=== PATIENT | female | born 1940 | race Caucasian/White ===

== ENCOUNTER 2016-12-22 17:22 | Emergency (ER) | payer MEDICARE, BC ==
[2016-12-22] MEDS ORDERED: traMADol TAB* 50 MG PO ONE (17:37)
--- NOTE | 2016-12-22 18:30 | RAD ---
INDICATION: Intracranial injury COMPARISON: CT brain January 29, 2015 TECHNIQUE: Noncontrast axial source images were acquired from the skull base to the vertex. FINDINGS: Ventricles/sulci: There is cortical atrophy with compensatory dilatation of the CSF spaces. Brain parenchyma: There is periventricular and subcortical white matter change compatible with chronic ischemia. Intracranial hemorrhage:None. Extra-axial spaces: There are no abnormal extra axial fluid collections or evidence of extra-axial mass. Calvarium: There is no calvarial fracture or other calvarial abnormality. Scalp: There is no evidence of scalp or extracalvarial soft tissue abnormality. Paranasal sinuses/mastoid: The paranasal sinuses and mastoid air cells are clear. Other: None. IMPRESSION: CORTICAL ATROPHY WITH CHRONIC MICROVASCULAR ISCHEMIC CHANGES. NO ACUTE FINDINGS.
--- NOTE | 2016-12-22 18:35 | RAD ---
INDICATION: Left supraorbital injury. COMPARISON: None TECHNIQUE: Axial source images were acquired from the vertex of the mandible through the orbits. Coronal and sagittal reconstructed images were acquired. FINDINGS: Bones: There is a mildly displaced, left-sided infraorbital fracture. There is herniation of fat but there is no rectus muscle involvement. No other facial bone fractures are seen. Orbits: There is minor left-sided proptosis with prominent left supra orbital swelling. There is a small amount of stranding of the retrobulbar fat likely related to the acute injury. The optic nerves are symmetric. Extraocular muscles appear intact. There is no evidence of a radiopaque foreign body. Paranasal sinuses: There is soft tissue density with an air-fluid level in left maxillary antra consistent with blood. The remaining paranasal sinuses are clear. Brain: There are no acute abnormalities of the visualized brain parenchyma. Soft tissues: Normal Other: None The visualized soft tissue elements about the neck appear normal. IMPRESSION: Mildly displaced fracture of the inferior left orbit with herniation of fat. There is left periorbital soft tissue swelling. There is presumed blood within the left maxillary antrum with an air-fluid level. No foreign body is identified.
[2016-12-22] MEDS ORDERED: ceFAZolin 1 GM VIAL(*) 1 GM in NS 0.9% 50 ML* 50 ML IVPB ONE (20:09)
[2016-12-22] MEDS ORDERED: ceFAZolin 1 GM ADVAN(*) 1 GM ADDV.VIAL IVPB ONE (20:25)
--- NOTE | 2016-12-22 21:36 | ED ---
Shaina Joya Thomas, scribed for Hung Deras MD on 12/22/16 at 1956 . Head Injury - HPI Summary HPI Summary: The pt is a 76 y/o F presenting to the ED c/o facial pain and abrasions, ecchymosis, and swelling to her left orbit s/p a fall in which she landed on broken glass. She reports that she was stepping out of a screen door with a glass in her hand when she fell forward and dropped the glass that she was holding, breaking it into many shards, then landing on those shards. She rates her pain 3/10. She denies any pain to her eye, only it needs to rest. When the glass broke, it broke into big large chunks. She denies LOC, neck pain, back pain, and hip pain during the fall. She does complain of right hand pain that every now and then I feel a prick. She is on Coumadin. She confirms a tetanus vaccination in the last five years. PMHx: A-Fib, HLD, HTN, seizure. PSHx : cardiac ablation, mitral valve replacement, pacer. SHx: no smoking, weekly alcohol use, no illicit drug use. Her PCP is Dr. Gutierrez. She is accompanied by her son. - History Of Current Complaint Chief Complaint: EDHeadInjury Stated Complaint: HEAD LAC Time Seen by Provider: 12/22/16 17:36 Hx Obtained From: Patient, Family/Rejector - son is present Mechanism Of Injury: Fall From A Standing Position - onto shards of glass Onset/Duration: Started Hours Ago, Still Present Pain Intensity: 3 Pain Scale Used: 0-10 Numeric Associated Signs And Symptoms: Swelling, Bruising, Other: - POS: facial pain, laceration above left eyebrow; NEG: LOC, neck pain, back pain, hip pain Anticoagulant Therapy: Coumadin - Allergies/Home Medications Allergies/Adverse Reactions: Allergies Allergy/AdvReac Type Severity Reaction Status Date / Time Hydrocodone [From Vicodin] Allergy Intermediate Paranoia Verified 05/11/14 11:01 Carbamazepine [From Tegretol] Allergy Unknown Verified 05/11/14 11:01 Reaction Details Sulfa Antibiotics Allergy Unknown Verified 05/11/14 11:01 Reaction Details PMH/Surg Hx/FS Hx/Imm Hx Previously Healthy: No Endocrine/Hematology History: Denies: Hx Diabetes, Hx Thyroid Disease, Hx Anemia Cardiovascular History: Reports: Hx Atrial Fibrillation, Hx Coronary Artery Disease, Hx Hypercholesterolemia, Hx Hypertension, Hx Pacemaker/ICD, Hx Valvular Heart Disease Respiratory History: Reports: Hx Asthma Denies: Hx Chronic Obstructive Pulmonary Disease (COPD) GI History: Denies: Hx Jaundice, Hx Ulcer Musculoskeletal History: Reports: Hx Arthritis, Hx Back Problems Denies: Hx Osteoporosis Sensory History: Reports: Hx Contacts or Glasses Denies: Hx Hearing Aid Opthamlomology History: Reports: Hx Contacts or Glasses Neurological History: Reports: Hx Transient Ischemic Attacks (TIA) - 2011 Denies: Hx Headaches Psychiatric History: Reports: Hx Anxiety, Hx Depression Denies: Hx Panic Disorder - Surgical History Surgery Procedure, Year, and Place: MITRAL VALVE REPLACEMENT 2006, TONSILS. cardiac ablation - Immunization History Date of Tetanus Vaccine: Unk Date of Influenza Vaccine: 2015 Infectious Disease History: No Infectious Disease History: Denies: Hx Hepatitis, Hx Human Immunodeficiency Virus (HIV), Traveled Outside the [place] in Last 30 Days - Family History Known Family History: Negative: Cardiac Disease - Social History Alcohol Use: Weekly Alcohol Amount: Two glasses per week Substance Use Type: Reports: None Smoking Status (MU): Never Smoked Tobacco Review of Systems Negative: Fever, Chills Negative: Erythema - eyes Negative: Sore Throat Negative: Chest Pain Negative: Shortness Of Breath, Cough Negative: Abdominal Pain, Vomiting, Nausea Negative: dysuria, hematuria Positive: Other - POS: facial pain; NEG: neck pain, back pain, hip pain. Negative: Myalgia, Edema - legs Negative: Rash Neurological: Other - NEG: dizziness, LOC All Other Systems Reviewed And Are Negative: Yes Physical Exam - Summary Physical Exam Summary: Constitutional: Well-developed, Well-nourished, Alert, Cooperative Skin: Warm, Dry. There is a 4mm laceration above the left eyebrow. There is left infraorbital ecchymosis as well as upper and lower eyelid ecchymosis. HENT: There is tenderness to palpation of the left maxilla and left infraorbital area. Normocephalic; No Racoons eyes; No battles sign; No abrasion ; No contusion; No hemotympanum; No maxilla instability; Dentition are smooth; No dental trauma; No trismus Eyes: There is chemosis of the left conjunctiva. EOM are intact but hesitant. PERRL. Neck: Trachea is midline. No stridor; No JVD; No step off; No posterior cervical spine tenderness Cardio: Rhythm regular, rate normal Heart sounds normal; Intact distal pulses; The pedal pulses are 2+ and symmetric. Radial pulses are 2+ and symmetric. Pulmonary/Chest wall: Effort normal; Breath sounds normal; Equal chest rise; No flail segment; No rib tenderness; No sternal tenderness Abd: Soft, Appearance normal. No distension; No tenderness; No palpable pulsatile mass; No Cullens sign; No Leong-Turners sign Musculoskeletal: Full ROM and no tenderness at hips, ankles, shoulders, elbows and knees; No joint swelling; No vertebral body tenderness; No paraspinal tenderness; No step off or deformity of the spine; Pelvis is stable to lateral compression and rock Neuro: Alert, Oriented x3, Strength 5/5 all extremities. : No blood at urethral meatus Psych: Mood and affect Normal Triage Information Reviewed: Yes Vital Signs On Initial Exam: Initial Vitals Temp Pulse Resp BP Pulse Ox 98.9 F 144 17 159/96 98 12/22/16 17:27 12/22/16 17:27 12/22/16 17:27 12/22/16 17:27 12/22/16 17:27 Vital Signs Reviewed: Yes - Carline Coma Scale Coma Scale Total: 15 Diagnostics - Vital Signs Vital Signs Temp Pulse Resp BP Pulse Ox 12/22/16 18:30 127 15 134/101 96 12/22/16 18:18 151/103 12/22/16 18:00 120 17 95 12/22/16 17:36 150/93 12/22/16 17:27 98.9 F 144 17 159/96 98 - Laboratory Lab Statement: Any lab studies that have been ordered have been reviewed, and results considered in the medical decision making process. - CT CT Brain CT Interpretation: No Acute Changes - CT Brain shows CORTICAL ATROPHY WITH CHRONIC MICROVASCULAR ISCHEMIC CHANGES. NO ACUTE FINDINGS. ED Physician has reviewed these report and agrees. CT Interpretation Completed By: Radiologist CT Maxillofacial CT Interpretation: Positive (See Comments) - CT Maxillofacial shows. Mildly displaced fracture of the inferior left orbit with herniation of fat. There is left periorbital soft tissue swelling. There is presumed blood within the left maxillary antrum with an air-fluid level. No foreign body is identified. ED Physician has reviewed these report and agrees. CT Interpretation Completed By: Radiologist - EKG 18:39 Cardiac Rate: NL - 123 BPM EKG Interpretation: Sinus tachycardia. PVCs. No STEMI. Head Injury Course/Dx Assessment/Plan: The pt is a 76 y/o F presenting to the ED c/o facial pain and abrasions, ecchymosis, and swelling to her left orbit s/p a fall in which she landed on broken glass. She reports that she was stepping out of a screen door with a glass in her hand when she fell forward and dropped the glass that she was holding, breaking it into many shards, then landing on those shards. She rates her pain 3/10. She denies any pain to her eye, only it needs to rest. When the glass broke, it broke into big large chunks. She denies LOC, neck pain, back pain, and hip pain during the fall. She does complain of right hand pain that every now and then I feel a prick. She is on Coumadin. She confirms a tetanus vaccination in the last five years. PMHx: A-Fib, HLD, HTN, seizure. PSHx: cardiac ablation, mitral valve replacement, pacer. SHx: no smoking, weekly alcohol use, no illicit drug use. Her PCP is Dr. Gutierrez. She is accompanied by her son. In the ED course the patient was given Kefzol and Ultam. EKG show sinus tachycardia at 123 BPM, PVCs, and no STEMI. CT Brain shows CORTICAL ATROPHY WITH CHRONIC MICROVASCULAR ISCHEMIC CHANGES. NO ACUTE FINDINGS. CT Maxillofacial shows. Mildly displaced fracture of the inferior left orbit with herniation of fat. There is left periorbital soft tissue swelling. There is presumed blood within the left maxillary antrum with an air- fluid level. No foreign body is identified. ED Physician has reviewed these reports and agrees. She is diagnosed with chemosis, eye trauma, eyelid laceration, and orbital fracture. I consulted with Dr. Caldwell, emergency medicine physician at [facility], who accepts the patient for transfer in need of maxillofacial consultation. - Diagnoses Provider Diagnoses: Chemosis, Eye trauma, Eyelid laceration, Orbital fracture - Physician Notifications Discussed Care Of Patient With: Mil Caldwell MD Time Discussed With Above Provider: 20:50 Discharge - Discharge Plan Condition: Fair Disposition: OTHER Discharge Disposition Comment: Transfer to [facility] and accepted by BETSY Pedro physician. Referrals: Bonnie Gutierrez MD [Primary Care Provider] - The documentation as recorded by the Shaina jimenez Thomas accurately reflects the service I personally performed and the decisions made by me, Hung Deras MD.
[2016-12-22 22:03] VITALS: BP 153/119
[2016-12-22] MEDS ORDERED: Morphine INJ* 4 MG/ML 1 ML CARPUJECT IV ONE (22:25)
[2016-12-22] MEDS ORDERED: Ondansetron INJ* 2 MG/ML VIAL IV ONE (22:25)
== END 2016-12-22 22:13 ==
LOC: ED 17:22
DX: H11.422 Conjunctival edema, left eye (principal); S01.112A Laceration without foreign body of left eyelid and periocular area, initial encounter; S02.82XA Fracture of other specified skull and facial bones, left side, initial encounter for closed fracture; S05.92XA Unspecified injury of left eye and orbit, initial encounter; I48.91 Unspecified atrial fibrillation; E78.5 Hyperlipidemia, unspecified; I10 Essential (primary) hypertension; Z95.2 Presence of prosthetic heart valve; Z95.0 Presence of cardiac pacemaker; I25.10 Atherosclerotic heart disease of native coronary artery without angina pectoris; E78.00 Pure hypercholesterolemia, unspecified; Z86.73 Personal history of transient ischemic attack (TIA), and cerebral infarction without residual deficits; W01.110A Fall on same level from slipping, tripping and stumbling with subsequent striking against sharp glass, initial encounter; Y92.89 Other specified places as the place of occurrence of the external cause; Z79.01 Long term (current) use of anticoagulants; Z88.5 Allergy status to narcotic agent; Z88.2 Allergy status to sulfonamides; M19.90 Unspecified osteoarthritis, unspecified site
CPT/HCPCS: 70450; 70486; 93005; 96360; 96374; 96375; 99284; J0690; J2270; J2405

== ENCOUNTER 2017-06-08 04:31 | Inpatient (IN) | payer MEDICARE, BC ==
[2017-06-08] MEDS ORDERED: NS 0.9% 1000 ML* 1,000 ML IV ONE (04:57)
[2017-06-08] MEDS ORDERED: LORazepam INJ* 2 MG/ML 1 ML VIAL IV PUSH ONE ×3 (05:12→09:11)
[2017-06-08] MEDS ORDERED: LORazepam INJ* 2 MG/ML 1 ML VIAL ONE ×2 (05:32→08:59)
[2017-06-08 05:33] LABS: ABS Basophils 0 10^3/ul (0-0.2); ABS Eosinophils 0 10^3/ul (0-0.6); ABS Lymphocytes 0.8 10^3/ul (1.0-4.8); ABS Monocytes 0.8 10^3/ul (0-0.8); ABS Neutrophils 12.1 10^3/ul (1.5-7.7); ABS Nucleated RBC 0 10^3/ul; Eosinophil % 0.1 % (0-6); Hematocrit 44 % (35-47); Hemoglobin 15.2 g/dl (12.0-16.0); Lymphocyte % 5.8 % (25-47); Mean Corpuscular HGB Conc 34 g/dl (31-36); Mean Corpuscular Hemoglobin 29 pg (27-31); Mean Corpuscular Volume 85 fL (80-97); Mean Platelet Volume 7 um3 (7.4-10.4); Nucleated Red Blood Cells % 0.1; Platelet Count 293 10^3/ul (150-450); Red Blood Count 5.24 10^6/ul (4.0-5.4); Red Cell Distribution Width 17 % (10.5-15); White Blood Count 13.7 10^3/ul (3.5-10.8)
[2017-06-08 05:42] LABS: INR 1.39 (0.77-1.02)
[2017-06-08] MEDS ORDERED: Haloperidol INJ IV/IM* 5 MG/ML AMP IM ONE (05:48)
--- NOTE | 2017-06-08 07:13 | ED ---
Juan M Joya Rebecca, scribed for Ab Garcia MD on 06/08/17 at 0450 . Altered Mental Status - HPI Summary HPI Summary: Pt is a 77 y/o F BIBA who presents to ED due to her son's concerns of increasingly worsening AMS. Her son states that she has "some sort of mental problem, but nobody knows what it is." States that beginning yesterday she has been ill. Then, tonight, she had "a spell" which is similar to those she has had in the past. This episode was similar to others in that it included N/V, WADDELL and generalized weakness. Son additionally states that she is in pain, though she cannot tell him where she is in pain. Son reports a suspected PMHx of epilepsy, though he states that it wasn't. Level 5 caveat - Hx unobtainable from pt due to uncooperativity - History Of Current Complaint Chief Complaint: EDAltMentalStatus Stated Complaint: AMS Time Seen by Provider: 06/08/17 04:33 Hx Obtained From: Family/Tool Lathe Operator - Son Hx From Patient Unobtainable Due To: Other - Uncooperativeness Onset/Duration: Still Present Character: Confusion Aggravating Factor(s): Nothing Alleviating Factor(s): Nothing Associated Signs And Symptoms: Positive: Weakness - Allergies/Home Medications Allergies/Adverse Reactions: Allergies Allergy/AdvReac Type Severity Reaction Status Date / Time MS Hydrocodone [From Vicodin] Allergy Intermediate Paranoia Verified 05/11/14 11 :01 MS Carbamazepine Allergy Unknown Verified 05/11/14 11:01 [From Tegretol] Reaction Details MS Sulfa Antibiotics Allergy Unknown Verified 05/11/14 11:01 [Sulfa Antibiotics] Reaction Details PMH/Surg Hx/FS Hx/Imm Hx Endocrine/Hematology History: Denies: Hx Diabetes, Hx Thyroid Disease, Hx Anemia Cardiovascular History: Reports: Hx Atrial Fibrillation, Hx Coronary Artery Disease, Hx Hypercholesterolemia, Hx Hypertension, Hx Pacemaker/ICD, Hx Valvular Heart Disease Respiratory History: Reports: Hx Asthma Denies: Hx Chronic Obstructive Pulmonary Disease (COPD) GI History: Denies: Hx Jaundice, Hx Ulcer Musculoskeletal History: Reports: Hx Arthritis, Hx Back Problems Denies: Hx Osteoporosis Sensory History: Reports: Hx Contacts or Glasses Denies: Hx Hearing Aid Opthamlomology History: Reports: Hx Contacts or Glasses Neurological History: Reports: Hx Transient Ischemic Attacks (TIA) - 2011 Denies: Hx Headaches Psychiatric History: Reports: Hx Anxiety, Hx Depression Denies: Hx Panic Disorder - Surgical History Surgery Procedure, Year, and Place: MITRAL VALVE REPLACEMENT 2007, TONSILS. cardiac ablation - Immunization History Date of Tetanus Vaccine: Unk Date of Influenza Vaccine: 2015 Infectious Disease History: No Infectious Disease History: Denies: Hx Hepatitis, Hx Human Immunodeficiency Virus (HIV), Traveled Outside the [place] in Last 30 Days - Family History Known Family History: Negative: Cardiac Disease - Social History Alcohol Use: Weekly Alcohol Amount: Two glasses per week Substance Use Type: Reports: None Smoking Status (MU): Never Smoked Tobacco Review of Systems Positive: Other - generalized weakness. Negative: Fever Positive: Vomiting, Nausea Positive: Other - nonspecific pain Positive: Headache All Other Systems Reviewed And Are Negative: No Physical Exam - Summary Physical Exam Summary: VITAL SIGNS: Reviewed. GENERAL: ~Patient is a well-developed and nourished female who is lying comfortable in the stretcher. Patient is not in any acute respiratory distress. Patient is not giving us any history. She is uncooperative, only knows her name and does not want to lie back to allow for examination. All history obtained from the osn. HEAD AND FACE: No signs of trauma. No ecchymosis, hematomas or skull depressions. No sinus tenderness. EYES: PERRLA, EOMI x 2, No injected conjunctiva, no nystagmus. EARS: Hearing grossly intact. Ear canals and tympanic membranes are within normal limits. MOUTH: Oropharynx within normal limits. NECK: Supple, trachea is midline, no adenopathy, no JVD, no carotid bruit, no c- spine tenderness, neck with full ROM. CHEST: Symmetric, no tenderness at palpation LUNGS: Clear to auscultation bilaterally. No wheezing or crackles. CVS: Regular rate and rhythm, S1 and S2 present, no murmurs or gallops appreciated. ABDOMEN: Soft, non-tender. No signs of distention. No rebound no guarding, and no masses palpated. Bowel sounds are normal. EXTREMITIES: FROM in all major joints, no edema, no cyanosis or clubbing. Motor examination is grossly nonfocal. NEURO: Alert and oriented to self. No acute neurological deficits. Speech is normal and follows commands. SKIN: Dry and warm Triage Information Reviewed: Yes Vital Signs On Initial Exam: Initial Vitals Temp Pulse Resp BP Pulse Ox 98.1 F 0 0 0/0 0 06/08/17 04:35 06/08/17 04:35 06/08/17 04:35 06/08/17 04:35 06/08/17 04:35 Vital Signs Reviewed: Yes Diagnostics - Vital Signs Vital Signs Temp Pulse Resp BP Pulse Ox 06/08/17 04:35 98.1 F 0 0 0/0 0 - Laboratory Result Diagrams: 06/08/17 05:22 06/08/17 05:22 Lab Statement: Any lab studies that have been ordered have been reviewed, and results considered in the medical decision making process. Altered Mental Statu Course/Dx - Course Assessment/Plan: Pt is a 77 y/o F BIBA who presents to ED due to her son's concerns of increasingly worsening AMS. Her son states that she has "some sort of mental problem, but nobody knows what it is." States that beginning yesterday she has been ill. Then, tonight, she had "a spell" which is similar to those she has had in the past. This episode was similar to others in that it included N/V, WADDELL and generalized weakness. Son additionally states that she is in pain, though she cannot tell him where she is in pain. Level 5 caveat - Hx unobtainable from pt due to uncooperativity. In the ED course, pt received Haldol, Ativan and fluids. Bloodwork was drawn. Pt will be signed out to Dr. Patrick, pending dispo, awaiting Brain CT, CXR and EKG. - Diagnoses Provider Diagnoses: Confusion Discharge - Discharge Plan Condition: Stable Disposition: OTHER Discharge Disposition Comment: Pt will be signed out to Dr. Patrick, pending dispo, awaiting radiology. Referrals: Bonnie Gutierrez MD [Primary Care Provider] - The documentation as recorded by the Juan M jimenez Rebecca accurately reflects the service I personally performed and the decisions made by me, Ab Garcia MD.
--- NOTE | 2017-06-08 07:21 | RAD ---
HISTORY: Confusion, altered mental status COMPARISONS: December 22, 2016 TECHNIQUE: Multiple contiguous axial CT scans were obtained of the head without intravenous contrast. FINDINGS: The study is limited by patient motion artifact. HEMORRHAGE/INFARCT: There is no hemorrhage or acute infarct. MASSES/SHIFT: There is no mass or shift. EXTRA-AXIAL SPACES: There are no extra-axial fluid collections. SULCI AND VENTRICLES: The sulci and ventricles are normal in size and position for the patient's stated age. CEREBRUM: There is hypoattenuation of the periventricular and subcortical white matter. BRAINSTEM: There are no focal parenchymal abnormalities. CEREBELLUM: There are no focal parenchymal abnormalities. VESSELS: The vessels are grossly normal. PARANASAL SINUSES: The paranasal sinuses are clear. ORBITS: The orbits are unremarkable. BONES AND SOFT TISSUE: No bone or soft tissue abnormalities are noted. OTHER: None IMPRESSION: LIMITED STUDY. WITHIN THE LIMITATIONS OF THE STUDY, THERE IS NO ACUTE INTRACRANIAL PATHOLOGY.
[2017-06-08 07:54] LABS: Urine Appearance Clear; Urine Blood 1+ (Negative); Urine Color Straw; Urine Ketones Negative (Negative); Urine Protein 2+(100 mg/dL) (Negative); Urine Specific Gravity 1.012 (1.010-1.030); Urine Urobilinogen Negative (Negative)
[2017-06-08] MEDS ORDERED: Magnesium Sulfate 2 GM IV* 2 GM/50 ML BAG IVPB ONE (08:16)
--- NOTE | 2017-06-08 09:14 | ED ---
Vick Joya Jennifer, scribed for Josemanuel Patrick MD on 06/08/17 at 0728 . Progress - Progress Note Progress Note: This patient is a sign out from Dr. Garcia pending CT Brain, CXR, EKG. Brain CT. Interpreted by a radiologist. IMPRESSION: LIMITED STUDY. WITHIN THE LIMITATIONS OF THE STUDY, THERE IS NO ACUTE INTRACRANIAL PATHOLOGY. Dr. Patrick has reviewed this report. Consulted with Dr. Bonnie Montero, patient admitting representative, at 08:09. Course/Dx - Course Course Of Treatment: DISCUSSED WITH DR MONTERO AND DR MORALES. ADMIT HOSPITALIST. - Diagnoses Provider Diagnoses: Confusion The documentation as recorded by the maribelibVick alcazar Jennifer accurately reflects the service I personally performed and the decisions made by , Josemanuel Patrick MD.
--- NOTE | 2017-06-08 10:39 | RAD ---
HISTORY: Confusion COMPARISONS: January 01, 2014 VIEWS: 2: frontal portable view of the chest at 10:20 AM. The patient is obliqued to the right. FINDINGS: LINES AND TUBES: A left-sided pacemaker is noted. CARDIOMEDIASTINAL SILHOUETTE: The cardiomediastinal silhouette is stable. A prosthetic heart valve is noted. PLEURA: The costophrenic angles are sharp. No pleural abnormalities are noted. LUNG PARENCHYMA: The lungs are clear. ABDOMEN: The upper abdomen is clear. There is no subphrenic gas. BONES AND SOFT TISSUES: The patient is status post median sternotomy. IMPRESSION: NO ACTIVE CARDIOPULMONARY DISEASE.
[2017-06-08] MEDS ORDERED: Vancomycin per Pharmacy* NOTE FOLLOW UP PRN (12:18)
[2017-06-08] MEDS ORDERED: NS 0.9% IV ONE ×2 (12:30→18:47)
[2017-06-08] MEDS ORDERED: PHYTONADIONE IV ONE ×2 (12:30→18:47)
[2017-06-08] MEDS ORDERED: Vancomycin(*) 1,000 MG in NS 0.9% 250 ML* 250 ML IVPB ONE (12:30)
[2017-06-08] MEDS: Morphine INJ* 2 MG/ML 1 ML CARPUJECT IV PRN ×2 (13:11→16:27)
[2017-06-08] MEDS: NS 0.9% 1000 ML* 1,000 ML IV SCH (13:12)
[2017-06-08] MEDS: cefTRIAXone(*) 2 GM in NS 0.9% 100 ML* 100 ML IVPB SCH (13:44)
[2017-06-08] MEDS ORDERED: Heparin VIAL(*) 5000 UNITS/ML VIAL (FIVE THOUSAND) SUBCUT SCH (14:00)
[2017-06-08 16:37] LABS: INR 1.22 (0.77-1.02)
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
[2017-06-08] MEDS ORDERED: Warfarin TAB(*) 2 MG PO SCH (17:00)
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
[2017-06-08] MEDS ORDERED: Phytonadione Oral Solution* 5 MG/25 ML UDC PO ONE (17:51)
[2017-06-08] MEDS ORDERED: Nitroglycerin 2% OINT* 1 GM PAK TOPICAL ONE (18:23)
[2017-06-08] MEDS: LORazepam INJ* 2 MG/ML 1 ML VIAL IV PUSH PRN (19:45)
[2017-06-08] MEDS: ACYCLOVIR IVPB SCH (20:10)
[2017-06-08] MEDS: NS 0.9% IVPB SCH (20:10)
[2017-06-08 20:30] LABS: INR 1.21 (0.77-1.02)
[2017-06-08] MEDS: Cyclobenzaprine TAB* 10 MG PO SCH (22:20)
[2017-06-08] MEDS: lamoTRIgine TAB(*) 100 MG PO SCH (22:40)
[2017-06-08] MEDS: lamoTRIgine TAB(*) 25 MG PO SCH (22:40)
[2017-06-08] MEDS: Metoprolol Tartrate IV* 1 MG/ML 5 ML VIAL IV SCH ×2 (22:49→22:52)
--- NOTE | 2017-06-08 22:52 | HP ---
HISTORY AND PHYSICAL: ADDENDUM: Addendum to history and physical dictated on 06/08/17. After discussing the case with Dr. Archer from Neurology, Dr. Archer is recommending an overnight continuous EEG monitoring. We are still awaiting the patient's serum Lamictal levels. Dr. Archer also recommended to have a lumbar puncture performed as soon as possible. For the time being, the patient is going to be placed on antibiotics, which include vancomycin and ceftriaxone for possibility of PULLMAN CLERK infection, although once again the patient's inflammatory markers are low. I spoke about the need of sedation and anesthesia assistance with the lumbar puncture with Dr. Hickman from Anesthesiology. Dr. Hickman requested and recommended for the patient's INR to be 1 before performing the lumbar puncture. Due to that and that the patient's INR is 1.39, the patient received vitamin K and repeat INR was still mildly elevated at 1.22. I discussed it with Dr. Hickman again who is going to follow up with INR and decide if the patient can have the lumbar puncture performed by Anesthesia today or tomorrow morning. [id number]/[facility] #: [id number] MTDD
[2017-06-09] MEDS: LORazepam INJ* 2 MG/ML 1 ML VIAL IV PUSH PRN ×3 (00:29→12:53)
[2017-06-09] MEDS ORDERED: Nitro Patch/OINT Remove PATCH OFF ONE (00:30)
[2017-06-09] MEDS: Morphine INJ* 2 MG/ML 1 ML CARPUJECT IV PRN ×4 (00:30→17:07)
[2017-06-09] MEDS: cefTRIAXone(*) 2 GM in NS 0.9% 100 ML* 100 ML IVPB SCH ×2 (00:39→13:55)
[2017-06-09] MEDS: Vancomycin(*) 1,000 MG in NS 0.9% 250 ML* 250 ML IVPB SCH ×2 (01:55→16:41)
[2017-06-09] MEDS: Metoprolol Tartrate IV* 1 MG/ML 5 ML VIAL IV SCH ×5 (04:16→21:07)
--- NOTE | 2017-06-09 07:35 | EEG ---
CC: Komal Cobos MD; Bonnie Gutierrez MD ELECTROENCEPHALOGRAPHY: DATE OF EE06/08/17 The patient is in the emergency department. ORDERING PROVIDER: Dr. Alina Turner. HISTORY: This is a 77-year-old woman with a history of epilepsy, but no known seizures in the past several years. She came in over night with sudden onset of agitation, restlessness, and confusion. She has not been following commands since she has been in the emergency department. She was also complaining of nonlocalized pain to her last evening. EEG is requested to evaluate for epileptiform abnormalities. MEDICATIONS: In the ER the patient received 3 mg of Haldol as well as a total of 3 mg of Ativan IV over 3 doses. Her home medications include: 1. Lamotrigine. 2. Warfarin. 3. Cyclobenzaprine. 4. Magnesium oxide. 5. Toprol. 6. Tylenol. DESCRIPTION OF PROCEDURE: The background lacked the typical organization expected as a waking or sleep background. Instead, the background was characterized by low to moderate amplitude, diffuse, polymorphic mixed frequency slowing in the range of 2 to 6 Hz. In addition, there were superimposed spindle like wave forms primarily frontally and centrally. Frequently intermixed throughout the background were sharp waves mostly in the left frontotemporal region which had a somewhat complex morphology. These were typically maximal at T3, sometimes more so at F7 and F3. They consisted of spike and slow waves, sometimes with biphasic negative and positive polarity to the spike portion. They sometimes appeared more diffusely represented in the left hemisphere extending into the centroparietal region. These often were seen to occur approximately once every page to every other page. At times these were also noted in the right temporal region, but less frequently. Throughout the recording there were no ictal patterns noted. IMPRESSION: This is an abnormal EEG due to the presence of diffuse background slowing, loss of typical background organization, and frequent epileptiform discharges in the left frontotemporal region with more rare discharges noted in the right temporal region. These findings are suggestive of a moderate, nonspecific, diffuse encephalopathy with superimposed increased epileptic potential in the left great than right frontotemporal regions. Given the patient's persistent altered mental status, patient will be monitored on continuous EEG. [id number]/[facility] #: [id number] [facility]
[2017-06-09] MEDS: NS 0.9% IVPB SCH (08:44)
[2017-06-09] MEDS: ACYCLOVIR IVPB SCH (08:44)
[2017-06-09 10:21] LABS: INR 1.06 (0.77-1.02)
[2017-06-09] MEDS: lamoTRIgine TAB(*) 25 MG PO SCH ×2 (11:53→21:08)
[2017-06-09] MEDS: lamoTRIgine TAB(*) 100 MG PO SCH ×2 (11:53→21:08)
[2017-06-09] MEDS: Magnesium Oxide TAB* 400 MG PO SCH (11:54)
[2017-06-09] MEDS: Metoprolol Succinate XL TAB* 50 MG PO SCH (11:54)
[2017-06-09] MEDS ORDERED: LORazepam INJ* 2 MG/ML 1 ML VIAL IV PUSH ONE (14:00)
[2017-06-09] MEDS: Acyclovir IV(*) 600 MG in NS 0.9% 100 ML* 100 ML IVPB SCH (15:51)
[2017-06-09] MEDS: hydrALAZINE IV* 20 MG/ML VIAL IV SLOW PU PRN ×2 (16:22→23:07)
[2017-06-09] MEDS: Fosphenytoin(*) 100 MG/2 ML VIAL IVPB SCH ×2 (16:30→21:08)
[2017-06-09] MEDS: Cyclobenzaprine TAB* 10 MG PO SCH (21:08)
[2017-06-09] MEDS: NS 0.9% 1000 ML* 1,000 ML IV SCH (22:11)
--- NOTE | 2017-06-09 22:28 | EEG ---
RESIDENTIAL VIDEO/EEG MONITORING - Monitoring Monitoring Start Date: 06/08/17 Current Monitoring Session: 06/08/17 at 14:00 to 06/09/17 at 15:04 EEG Clinical Indication: Abena Jenkins is a 77 year old woman with a history of epilepsy who presented to the emergency department yesterday with restlessness, agitation and confusion. Her last known seizure was years ago. A routine EEG showed left greater than right temporal discharges of low voltage. Long-term video EEG was requested in order to evaluate for subclinical seizures. Introduction: INTRODUCTION: The EEG was monitored from 21 scalp electrodes. Nineteen electrodes consisted of the standard parasagittal, temporal and midline leads of the International 10 -20 system. In addition, special electrodes T1 and T2 were placed. EEG data were recorded on an [employer] system with simultaneous MPEG-4 digital video recording of patient behavior. EEG recording was in a monopolar montage with all electrodes referenced to FCz. Significant behavioral events were signaled by an event button, or putative electrical seizure events were detected by a computer program. All EEG data were reviewed in their entirety on a monitor with reconstruction of montages and adjustments of sensitivity and filtering. Simultaneous patient behavior was viewed on an adjacent monitor and correlated with the EEG. - Medications Active Medications: Acetaminophen (Tylenol Tab*) 650 mg PO Q4H PRN PRN Reason: FEVER/PAIN Cyclobenzaprine HCl (Flexeril Tab*) 10 mg PO BEDTIME [facility] Last Admin: 06/09/17 21:08 Dose: Not Given Fosphenytoin Sodium (Cerebyx(*)) 100 mg IVPB TID [facility] Last Admin: 06/09/17 21:08 Dose: 100 mg Hydralazine HCl (Apresoline Iv*) 5 mg IV SLOW PU Q6H PRN PRN Reason: BLOOD PRESSURE Last Admin: 06/09/17 16:22 Dose: 5 mg Sodium Chloride (Ns 0.9% 1000 Ml*) 1,000 mls @ 75 mls/hr IV PER RATE [facility] Last Admin: 06/09/17 22:11 Dose: 75 mls/hr Ceftriaxone Sodium 2 gm/ (Sodium Chloride) 100 mls @ 200 mls/hr IVPB Q12H [facility] Last Admin: 06/09/17 13:55 Dose: 200 mls/hr Vancomycin HCl 1,000 mg/ (Sodium Chloride) 250 mls @ 166.667 mls/hr IVPB Q12H [facility] Last Admin: 06/09/17 16:41 Dose: 166.667 mls/hr Acyclovir Sodium 600 mg/ (Sodium Chloride) 112 mls @ 112 mls/hr IVPB 0330,1530 [facility] Last Admin: 06/09/17 15:51 Dose: 112 mls/hr Lamotrigine (Lamictal Tab(*)) 100 mg PO BID [facility] Last Admin: 06/09/17 21:08 Dose: Not Given Lamotrigine (Lamictal Tab(*)) 25 mg PO BID [facility] Last Admin: 06/09/17 21:08 Dose: Not Given Lorazepam (Ativan Inj*) 1 mg IV PUSH Q4H PRN PRN Reason: ANXIETY Last Admin: 06/09/17 12:53 Dose: 2 mg Magnesium Oxide (Magox 400 Tab*) 400 mg PO DAILY [facility] Last Admin: 06/09/17 11:54 Dose: Not Given Metoprolol Succinate (Toprol Xl Tab*) 50 mg PO QAM [facility] Last Admin: 06/09/17 11:54 Dose: Not Given Metoprolol Tartrate (Lopressor Iv*) 5 mg IV Q4H [facility] Last Admin: 06/09/17 21:07 Dose: 5 mg Morphine Sulfate (Morphine Inj (Syringe)*) 2 mg IV Q4H PRN PRN Reason: PAIN Last Admin: 06/09/17 17:07 Dose: 2 mg Pharmacy Consult (Vancomycin Per Pharmacy*) 1 note FOLLOW UP . PRN PRN Reason: PER PROTOCOL Pharmacy Profile Note (Coumadin Daily Reminder*) 1 note FOLLOW UP 1700 [facility] Last Admin: 06/09/17 18:16 Dose: Not Given Pharmacy Profile Note (Vancomycin Trough Check) 1 note FOLLOW UP 1330 ONE Stop: 06/10/17 13:31 - Description Background: The background lacked the organization expected of the typical waking or sleep background. There were no evident anterior to posterior voltage or frequency gradients. There was no posterior dominant rhythm. The background consisted of low voltage, diffuse, mixed frequency slowing with intermittent superimposed spindle-like waveforms. The background did retain some reactivity, with faster frequency activity emerging during periods of arousal. No normal sleep architecture was observed. Intericatal Epileptiform Activity: There were occasional to frequent, low voltage, left greater than right temporal discharges with spike morphology. On the left, these were generally maximal at T3, with a broad field in the temporal region and extending to the posterior quadrant. On the right, these discharges involved homologous regions. These generally occurred several times per minute. Ictal Activity: None - Impression Impression: This is an abnormal long-term monitoring session. There is diffuse background slowing with loss of the usual organization, but the EEG retained reactivity. In addition, there are left greater than right temporal epileptiform discharges. These findings are suggestive of a moderate to severe, non-specific diffuse encephalopathy with superimposed increased epileptic potential in the left greater than right temporal region. There were no seizures noted during this monitoring session.
[2017-06-10] MEDS: Morphine INJ* 2 MG/ML 1 ML CARPUJECT IV PRN ×2 (00:17→04:38)
[2017-06-10] MEDS: cefTRIAXone(*) 2 GM in NS 0.9% 100 ML* 100 ML IVPB SCH ×2 (00:24→11:59)
[2017-06-10] MEDS: Metoprolol Tartrate IV* 1 MG/ML 5 ML VIAL IV SCH ×6 (00:25→20:10)
[2017-06-10] MEDS: LORazepam INJ* 2 MG/ML 1 ML VIAL IV PUSH PRN ×2 (01:23→04:38)
[2017-06-10] MEDS ORDERED: hydrALAZINE IV* 20 MG/ML VIAL IV SLOW PU ONE (01:56)
[2017-06-10] MEDS: Vancomycin(*) 1,000 MG in NS 0.9% 250 ML* 250 ML IVPB SCH (02:32)
[2017-06-10] MEDS: Acyclovir IV(*) 600 MG in NS 0.9% 100 ML* 100 ML IVPB SCH ×2 (05:29→14:13)
[2017-06-10 06:45] LABS: ABS Basophils 0.1 10^3/ul (0-0.2); ABS Eosinophils 0.1 10^3/ul (0-0.6); ABS Monocytes 1.5 10^3/ul (0-0.8); ABS Neutrophils 8.4 10^3/ul (1.5-7.7); ABS Nucleated RBC 0 10^3/ul; Eosinophil % 1.2 % (0-6); Hematocrit 39 % (35-47); Hemoglobin 13.3 g/dl (12.0-16.0); Lymphocyte % 8.8 % (25-47); Mean Corpuscular HGB Conc 34 g/dl (31-36); Mean Corpuscular Hemoglobin 29 pg (27-31); Mean Corpuscular Volume 86 fL (80-97); Mean Platelet Volume 7 um3 (7.4-10.4); Nucleated Red Blood Cells % 0; Platelet Count 245 10^3/ul (150-450); Red Blood Count 4.57 10^6/ul (4.0-5.4); Red Cell Distribution Width 15 % (10.5-15)
[2017-06-10] MEDS: lamoTRIgine TAB(*) 25 MG PO SCH ×2 (09:01→22:29)
[2017-06-10] MEDS: Metoprolol Succinate XL TAB* 50 MG PO SCH (09:01)
[2017-06-10] MEDS: lamoTRIgine TAB(*) 100 MG PO SCH ×2 (09:01→22:27)
[2017-06-10] MEDS: Magnesium Oxide TAB* 400 MG PO SCH (09:01)
[2017-06-10] MEDS: Fosphenytoin(*) 100 MG/2 ML VIAL IVPB SCH ×3 (09:12→20:16)
--- NOTE | 2017-06-10 11:49 | PN ---
PROGRESS NOTE: DATE OF FOLLOWUP: 06/09/17 HISTORY: The patient was seen this morning around 9:30 a.m. and then later this afternoon around 2:3 0 or 3 p.m. She had no significant overnight events. She continued on continuous EEG monitoring. H er sister and her son were in the room at the time of my initial evaluation, who reported that clinic ally she remained largely unchanged with an intermittent agitated delirium and not responding verball y or to any commands and not really opening her eyes. Her lumbar puncture happened this afternoon af ter I spoke with Dr. Lilly about the clinical acuity of it. HOSPITAL MEDICATIONS: 1. Ceftriaxone 2 g q. 12 hours. 2. Lamotrigine, which has not been given secondary to the patient not being able to take anything p. o.. 3. Lorazepam 2 mg given at 1253 for the lumbar puncture. 4. Metoprolol 5 mg IV q. 4 hours. 5. Morphine 2 mg IV q. 4 p.r.n. pain, last given at 1252. 6. The patient is also on acyclovir. 7. She has received vitamin K for reversal of her anticoagulation. PHYSICAL EXAMINATION: Vital Signs: Temperature 98.5 with a T-max of 99 this morning, her blood pres sures have remained very elevated at 200/89 with the lowest measurement recently being 144/99 at 7 a. m. this morning. On general examination, she this morning was occasionally moving around restlessly and purposelessly in her bed with eyes closed. She makes occasional noises but does not verbalize anything intelligibl e. Her heart is at regular rate and rhythm. Her lungs were clear anteriorly. Her skin was intact. On neurologic exam, she does not follow any commands. Her gaze is midline and there is no blink to t hreat. Her pupils are briskly reactive from 3 to 2 mm. The ORs are intact. Her face is symmetric. She still has some mildly increased tone in her left leg but the left arm appears better than yesterd ay. She moves all of her extremities equally. She responds to noxious stimulation in all four extre mities and both toes are upgoing. Her reflexes on the left continue to be slightly brisker than that on the right. DATA: Her INR this morning was 1.06. Her repeat chemistry panel has shown alkaline phosphatase of 1 20 down from 148 yesterday. Her CRP is 33.88 today whereas it was negative yesterday. Her procalcit onin was negative. CBC has not yet been repeated. Her lumbar puncture thus far shows an elevated to lisset protein of 58, glucose of 59 with cell counts are pending. Her continuos EEG monitoring has shown essentially the same findings as yesterday with left greater t lyles right temporal sharp waves which sometimes have a more widely distributed field in the left or th e right hemisphere. Otherwise, the EEG shows a sedated pattern but retains reactivity. There is no evidence of subclinical seizures. IMPRESSION: Abena Jenkins is a 77-year-old woman with an agitated delirium of unclear etiology at t his time. I am going to discontinue the continuous EEG monitoring since there has been no evidence f or subclinical seizure over the period of 24 hours. Her urine studies for porphyria are pending. Al so on the differential has to be posterior reversible encephalopathy syndrome given her hypertension and I think we should be more aggressive in treating her blood pressure at this point. I will follow up her CSF studies and if any suggest the need for further studies then order these accordingly. Wi th respect to her history of seizures as well, she has been unable to receive lamotrigine secondary t o being unable to take anything p.o. So at this point, I am going to place her on fosphenytoin IV tr y to provide some coverage against seizures until she hopefully wakes up and is able to again take p. o. I will be discussing further with Dr. Gutierrez as well. [id number]/[facility] #: [id number]
[2017-06-10] MEDS ORDERED: NS 0.9% 100 ML* 100 ML ONE (11:51)
[2017-06-10] MEDS ORDERED: Vancomycin Trough Check NOTE FOLLOW UP ONE (13:30)
--- NOTE | 2017-06-10 17:39 | RAD ---
Indication: PICC placement verification. Comparison: June 08, 2017 Technique: Upright AP 1620 hours Report: Tip of LEFT upper chimney PICC at the level of the superior vena cava RIGHT atrial junction directed central. Mild prominence of the interstitial markings. Clear pleural spaces. Negative for pneumothorax. RIGHT atrial and RIGHT ventricular level pacemaker leads. Aortic valve replacement. Cardiomegaly. Unremarkable central pulmonary vasculature. IMPRESSION: Acceptable position of the LEFT upper extremity PICC.
[2017-06-10] MEDS: hydrALAZINE IV* 20 MG/ML VIAL IV SLOW PU PRN (20:51)
[2017-06-10] MEDS ORDERED: Warfarin TAB(*) 5 MG PO ONE (21:00)
--- NOTE | 2017-06-10 22:05 | CONS ---
CONSULTATION REPORT: DATE OF CONSULT: 06/10/17 REQUESTING PHYSICIAN: Dr. Archer. CONSULTING SERVICE: Infectious Disease. REASON FOR CONSULTATION: Encephalitis. IMPRESSION: 1. Encephalopathy and mild CSF pleocytosis. Taken together, she has encephalitis, the low white count, borderline elevated protein, normal glucose, and negative Gram stain rules out bacterial meningitis. She is also improving without ampicillin, so I think listeriosis is less likely. More likely, this is a viral infection including HSV 1 or varicella. At this time, influenza and parainfluenza are considerations. 2. Seizure disorder. 3. Atrial fibrillation. 4. History of stroke. 5. Pacemaker placement. 6. Status post mitral valve replacement. 7. Encephalopathy present on admission. RECOMMENDATIONS: Stop vancomycin and we will continue ceftriaxone, acyclovir and follow her mental status while we are awaiting the PCR results from the spinal fluid. HISTORY OF PRESENT ILLNESS: This is a 77-year-old woman brought to the hospital by her family after she was found to be making less and less sense over a couple of day-period. She cannot provide any history, which was obtained instead from review of the medical record, discussion with Dr. Archer and discussion with the patient's son. The patient's son lives with her and noted she was feeling off over the weekend and then by Wednesday was not acting her usual self. So, she came to the hospital on 06/08/17. She had a white count of 13,000. She was afebrile. She had a brain CT that showed no acute changes. She had an electroencephalogram, seen by Dr. Archer. Because of persistent decrease in mental status, she had a lumbar puncture that showed 34 white cells, 82% neutrophils, protein 58, glucose 59. A Gram stain showed neutrophils and no organisms. Urine toxicology screen was negative. Blood cultures are negative. Spinal fluid culture is negative for 24 hours. She has been on vancomycin, ceftriaxone, acyclovir. The patient's family notes today she is a little more alert and that she can be awakened and she will say a word or two and then right back to being asleep. She has had no fevers or chills while she has been here per the nurse. PAST MEDICAL HISTORY: 1. Seizure disorder. 2. History of stroke. 3. Pacemaker placement. 4. Status post mitral valve replacement. 5. Hypertension. 6. Dyslipidemia. 7. Vertigo. 8. Headaches. 9. Narcolepsy. ALLERGIES: VICODIN causes paranoia, SULFA, TEGRETOL. MEDICATIONS: 1. Acyclovir 600 mg every 12 hours. 2. Cyclobenzaprine. 3. Fosphenytoin. 4. Hydralazine. 5. Lamictal. 6. Magnesium oxide. 7. Metoprolol. 8. Morphine. 9. Ceftriaxone 2 g every 12 hours. 10. Vancomycin. 11. Warfarin. SOCIAL HISTORY: She lives outside of [place] with her and son. She has no travel or sick contacts. There is a dog at home. FAMILY HISTORY: Father with severe depression, no malignancy that family is aware of, but cannot elaborate further. REVIEW OF SYSTEMS: Untamable given her mental status. PHYSICAL EXAMINATION: Vital Signs: Temperature 37.7, heart rate 76, respiratory rate 10, blood pressure 170/65, oxygen saturation 94% on room air. In general, she awakened to being shaken or spoken to and keep her eyes open for a couple of minutes. She will answer an occasional question and will squeeze with both hands. HEENT: There is no conjunctival hemorrhage. Oropharynx without lesions. Neck: Neck is supple. There is no mass. Lymph Nodes: There is no inguinal, axillary, or epitrochlear lymphadenopathy. Heart : Regular rate and rhythm without murmurs, rubs, or gallops. Lungs are clear to auscultation bilaterally. Abdomen: Soft, nontender, nondistended. There are bowel sounds present. Skin: There is no rash or splinter hemorrhages. Musculoskeletal: There is no spine tenderness to palpation or joint synovitis. LABORATORY DATA: White blood cell count 11, hemoglobin 13, platelets 245. Creatinine is 0.9. CRP 33, up from 2 on admission. Please see impressions and recommendations outlined above, which I have discussed with Dr. Archer. Thank you for asking me to see Ms. Jenkins in consultation. [id number]/[facility] #: [id number] [facility]ITAL[facility]
[2017-06-10] MEDS: Enoxaparin(*) 60 MG/0.6 ML SYR SUBCUT SCH (22:25)
[2017-06-10] MEDS: Cyclobenzaprine TAB* 10 MG PO SCH (22:32)
[2017-06-11] MEDS: cefTRIAXone(*) 2 GM in NS 0.9% 100 ML* 100 ML IVPB SCH ×2 (00:13→12:14)
[2017-06-11] MEDS: Metoprolol Tartrate IV* 1 MG/ML 5 ML VIAL IV SCH ×3 (00:31→08:41)
[2017-06-11] MEDS: hydrALAZINE IV* 20 MG/ML VIAL IV SLOW PU PRN (02:46)
[2017-06-11] MEDS ORDERED: NS 0.9% 100 ML* 100 ML ONE (03:36)
[2017-06-11] MEDS: Acyclovir IV(*) 600 MG in NS 0.9% 100 ML* 100 ML IVPB SCH (03:46)
[2017-06-11] MEDS: NS 0.9% 1000 ML* 1,000 ML IV SCH (03:47)
[2017-06-11 06:19] LABS: Hematocrit 39 % (35-47); Hemoglobin 13.2 g/dl (12.0-16.0); Mean Corpuscular HGB Conc 34 g/dl (31-36); Mean Corpuscular Hemoglobin 29 pg (27-31); Mean Corpuscular Volume 86 fL (80-97); Mean Platelet Volume 7 um3 (7.4-10.4); Platelet Count 310 10^3/ul (150-450); Red Cell Distribution Width 16 % (10.5-15); White Blood Count 13.6 10^3/ul (3.5-10.8)
[2017-06-11 06:22] LABS: INR 1.17 (0.77-1.02)
[2017-06-11 06:30] LABS: EGFR Non-African American 63.1 (>60)
--- NOTE | 2017-06-11 06:45 | PN ---
NEUROLOGY FOLLOWUP NOTE: DATE OF FOLLOWUP: 06/10/17 The patient is in ICU bed 12. HISTORY: The patient's son reports that prior to 1 a.m., he was able to get a clear response of "yes" out of her and she was starting to open her eyes, but then after 1 a.m. she became less responsive again. Nursing reported that there was some drainage on her pillow and it was unclear if this had come from her mouth, or her nose or her ear. This was yellowish in color. She had infiltration of vancomycin into her right arm and so now she has medications infusing in her left arm. A lumbar puncture was performed yesterday afternoon. MEDICATIONS: Acyclovir, ceftriaxone, fosphenytoin 100 mg three times daily, lorazepam 1 mg as needed for anxiety, metoprolol 5 mg IV q.4 hours, morphine 2 mg IV q.4 hours p.r.n. pain. She also has hydralazine ordered p.r.n. for systolic blood pressure greater than 160. She did require several p.r.n. after I had spoken with Dr. Gutierrez and then Dr. Gutierrez spoke with the nurse yesterday. PHYSICAL EXAMINATION: Vital Signs: Temperature was 100 degrees Fahrenheit at 4 a.m. this morning. Blood pressure most recently 170/65 though this last blood pressure documented in [facility] was from 2 a.m. Last evening after she began receiving some hydralazine, she did have some blood pressure measurements in the 130s and 140s though she still had some blood pressure measurements over 200. Her heart rate is 70, oxygen saturation is 98% on room air. On general examination, she was lying on her left side with her eyes closed. Initially, she did not open her eyes spontaneously or to command and did not speak. Her heart is in a regular rate and rhythm. Her lungs were clear to auscultation. She had ecchymosis over her right shoulder and a few areas on her back as well. Her gaze is midline and the pupils are equal, round and reactive from 3 to 2 mm. She did actively resist the examiner opening her eyes today. She did appear to have some blink to threat. With attempts to test her VORs, she did seem to arouse somewhat from her sedated stated state though she did not speak. She is able to move all extremities, but I noted that with passive movement of her right leg she appeared to have some clonus of her left leg. Her left toe continues to be upgoing. Her sensation is intact to noxious stimulation in all four extremities. I attempted to examine the patient's ear canal because of possibility of drainage being found on the pillow and with the otoscope in her ear she said "ow " and then opened her eyes and was able to briefly say a clear sentence to the nurse before drifting back off to sleep. DATA: CBC this morning shows a white count of 11 with 8.4 absolute neutrophil count, 13.2% monocytes and 8.8% lymphocytes. Her lumbar puncture showed 34 white cells with 82% neutrophils 15% monocytes and 3% lymphocytes, glucose 59, total protein 58. I note that her lamotrigine level on admission was low at 2.1. Flow cytometry and other studies on CSF are pending. Today, I added varicella-Zoster PCR on to the CSF. IMPRESSION: Abena Jenkins is a 77-year-old woman who came in with an agitated delirium. Her spinal fluid is suspicious for an infectious etiology. She is being covered with antibiotics as well as acyclovir and I have asked Dr. Vergara to come and consult on her. I wonder if he thinks there is a need to cover her for the possibility of listeria with ampicillin as well. She appears to be slowly improving clinically. I think we should continue with the current course and I have discussed this with the patient's son who was at the bedside. I questioned whether a repeat brain CT could help us at all given that she has had some focal asymmetries on her neuro exam, but at this point, since she is starting to show some improvement, I do not think it will necessarily help us. I will continue to follow the patient along. [id number]/[facility] #: [id number] MTDD
[2017-06-11] MEDS: Magnesium Oxide TAB* 400 MG PO SCH (08:42)
[2017-06-11] MEDS: Metoprolol Succinate XL TAB* 50 MG PO SCH (08:42)
[2017-06-11] MEDS: lamoTRIgine TAB(*) 100 MG PO SCH ×2 (08:42→20:07)
[2017-06-11] MEDS: Enoxaparin(*) 60 MG/0.6 ML SYR SUBCUT SCH ×2 (08:42→20:07)
[2017-06-11] MEDS: lamoTRIgine TAB(*) 25 MG PO SCH ×2 (09:26→20:07)
[2017-06-11] MEDS ORDERED: Fosphenytoin(*) 100 MG/2 ML VIAL IV SLOW PU SCH (10:01)
--- NOTE | 2017-06-11 10:28 | PN ---
Subjective - Subjective Reason for Note: Progress Note History: I have obtained the history of her presentation and hospital course from Dr. Bonnie Gutierrez directly and also from the electronic medical record. She has had an episode of encephalopathy and seizures have been ruled out. She is much more alert and responsive today. She is with family members. She is able to answer questions and follow simple commands. She states she is in the hospital and that it is Winter and the month is June. She cannot give an account of herself. She has no pain or discomfort. Her appetite is normal. She has not had a bowel movement since her admission. She has had persistent hypertension Active Problems: Active Problems Accelerated hypertension (Acute) I10 CSF abnormal (Acute) R83.9 Encephalopathy acute (Acute) G93.40 Anticoagulated (Chronic) Z79.01 Atrial fibrillation (Chronic) I48.91 Dyslipidemia (Chronic) E78.5 Essential (primary) hypertension (Chronic) I10 History of CVA (cerebrovascular accident) (Chronic) Z86.73 History of mitral valve replacement with bioprosthetic valve (Chronic) Z95.4 Hyperlipidemia (Chronic) E78.5 Narcolepsy (Chronic) G47.419 Pacemaker (Chronic) Z95.0 Seizure disorder (Chronic) G40.909 Current Medications: Current Medications Acetaminophen (Tylenol Tab*) 650 mg PO Q4H PRN PRN Reason: FEVER/PAIN Cyclobenzaprine HCl (Flexeril Tab*) 10 mg PO BEDTIME [facility] Last Admin: 06/10/17 22:32 Dose: 10 mg Enoxaparin Sodium (Lovenox(*)) 60 mg SUBCUT Q12H [facility] Last Admin: 06/11/17 08:42 Dose: 60 mg Fosphenytoin Sodium (Cerebyx(*)) 100 mg IV SLOW PU TID [facility] Heparin Sodium (Porcine) (Heparin Flush Picc/Ml/Cvc(*)) 1 - 3 ml FLUSH 0600, 1800 [facility] PRN Reason: Protocol Last Admin: 06/11/17 06:09 Dose: 2 ml Hydralazine HCl (Apresoline Iv*) 10 mg IV SLOW PU Q6H PRN PRN Reason: SBP>160 Last Admin: 06/11/17 02:46 Dose: 10 mg Sodium Chloride (Ns 0.9% 1000 Ml*) 1,000 mls @ 75 mls/hr IV PER RATE [facility] Last Admin: 06/11/17 03:47 Dose: 75 mls/hr Ceftriaxone Sodium 2 gm/ (Sodium Chloride) 100 mls @ 200 mls/hr IVPB Q12H [facility] Last Admin: 06/11/17 00:13 Dose: 200 mls/hr Acyclovir Sodium 600 mg/ (Sodium Chloride) 112 mls @ 112 mls/hr IVPB 0330,1530 [facility] Last Admin: 06/11/17 03:46 Dose: 112 mls/hr Lamotrigine (Lamictal Tab(*)) 100 mg PO BID [facility] Last Admin: 06/11/17 08:42 Dose: 100 mg Lamotrigine (Lamictal Tab(*)) 25 mg PO BID [facility] Last Admin: 06/11/17 09:26 Dose: Not Given Lorazepam (Ativan Inj*) 1 mg IV PUSH Q4H PRN PRN Reason: ANXIETY Last Admin: 06/10/17 04:38 Dose: 1 mg Magnesium Oxide (Magox 400 Tab*) 400 mg PO DAILY [facility] Last Admin: 06/11/17 08:42 Dose: 400 mg Metoprolol Succinate (Toprol Xl Tab*) 50 mg PO QAM [facility] Last Admin: 06/11/17 08:42 Dose: 50 mg Metoprolol Tartrate (Lopressor Iv*) 5 mg IV Q4H [facility] Last Admin: 06/11/17 08:41 Dose: 5 mg Morphine Sulfate (Morphine Inj (Syringe)*) 2 mg IV Q4H PRN PRN Reason: PAIN Last Admin: 06/10/17 04:38 Dose: 2 mg Pharmacy Profile Note (Coumadin Daily Reminder*) 1 note FOLLOW UP 1700 [facility] Last Admin: 06/10/17 15:29 Dose: Not Given Home Medications: Home Medications Medication Instructions Recorded Confirmed Type lamoTRIgine TAB(*) [LaMICtal 150 mg PO BID 10/05/12 06/08/17 History TAB(*)] Mometasone 220 MCG MDI * [Asmanex 1 puff INH BID 10/17/13 06/08/17 History (NF)] Furosemide TAB* [Lasix TAB*] 20 mg PO QAM 03/31/14 06/08/17 History Acetaminophen TAB* [Tylenol TAB*] 325 mg PO Q6H PRN 05/11/14 06/08/17 History Clobetasol 0.05% OINT* 1 applic TOPICAL BID 06/08/17 06/08/17 History Cyclobenzaprine TAB* [Flexeril 10 10 mg PO BEDTIME 06/08/17 06/08/17 History MG TAB*] Imipramine (NF) 50 mg PO QPM 06/08/17 06/08/17 History Magnesium Oxide TAB* [MagOx 400 400 mg PO DAILY 06/08/17 06/08/17 History TAB*] Metoprolol Succinate XL TAB* 50 mg PO QAM 06/08/17 06/08/17 History [Toprol XL TAB*] Simvastatin TAB(NF) [Zocor(NF)] 10 mg PO QPM 06/08/17 06/08/17 History Allergies: Allergies Allergy/AdvReac Type Severity Reaction Status Date / Time hydrocodone Allergy Intermediate See Comment Verified 06/08/17 11:43 carbamazepine Allergy Unknown Verified 06/08/17 11:43 Reaction Details Sulfa (Sulfonamide Allergy Unknown Verified 06/08/17 11:43 Antibiotics) Reaction Details Objective - Vital Signs Vital Signs: Vital Signs 06/10/17 06/10/17 06/10/17 10:57 11:00 11:02 Temperature Pulse Rate Respiratory 20 15 15 Rate Blood Pressure (mmHg) O2 Sat by Pulse Oximetry 06/10/17 06/10/17 06/10/17 11:32 12:00 13:00 Temperature Pulse Rate 70 70 Respiratory 22 21 20 Rate Blood Pressure (mmHg) O2 Sat by Pulse 98 99 Oximetry 06/10/17 06/10/17 06/10/17 14:00 14:27 15:00 Temperature Pulse Rate 76 70 Respiratory 10 20 16 Rate Blood Pressure (mmHg) O2 Sat by Pulse 94 96 Oximetry 06/10/17 06/10/17 06/10/17 16:00 17:00 17:38 Temperature Pulse Rate 70 70 Respiratory 15 17 22 Rate Blood Pressure (mmHg) O2 Sat by Pulse 97 94 Oximetry 06/10/17 06/10/17 06/10/17 17:47 18:00 19:00 Temperature Pulse Rate 69 72 70 Respiratory 33 19 13 Rate Blood Pressure (mmHg) O2 Sat by Pulse 96 95 99 Oximetry 06/10/17 06/10/17 06/10/17 19:17 19:32 20:00 Temperature 99.1 F Pulse Rate 70 70 70 Respiratory 18 15 16 Rate Blood Pressure 205/74 201/67 (mmHg) O2 Sat by Pulse 98 97 99 Oximetry 06/10/17 06/10/17 06/10/17 20:46 21:00 21:01 Temperature Pulse Rate 71 69 72 Respiratory 15 18 17 Rate Blood Pressure 207/87 186/86 (mmHg) O2 Sat by Pulse 96 94 94 Oximetry 06/10/17 06/10/17 06/10/17 21:30 22:00 22:01 Temperature Pulse Rate 71 70 72 Respiratory 20 16 19 Rate Blood Pressure 178/72 192/75 (mmHg) O2 Sat by Pulse 96 98 91 Oximetry 06/10/17 06/10/17 06/10/17 22:30 23:00 23:01 Temperature Pulse Rate 70 70 70 Respiratory 15 14 19 Rate Blood Pressure 191/78 159/62 (mmHg) O2 Sat by Pulse 96 97 96 Oximetry 06/10/17 06/10/17 06/11/17 23:23 23:30 00:00 Temperature 98.8 F Pulse Rate 70 70 70 Respiratory 17 18 17 Rate Blood Pressure 167/64 164/62 (mmHg) O2 Sat by Pulse 96 96 95 Oximetry 06/11/17 06/11/17 06/11/17 00:30 01:00 01:30 Temperature Pulse Rate 70 70 70 Respiratory 25 16 16 Rate Blood Pressure 139/55 161/63 180/69 (mmHg) O2 Sat by Pulse 96 97 98 Oximetry 06/11/17 06/11/17 06/11/17 01:36 02:00 02:30 Temperature Pulse Rate 70 70 70 Respiratory 17 16 19 Rate Blood Pressure 161/78 171/70 200/74 (mmHg) O2 Sat by Pulse 96 95 95 Oximetry 06/11/17 06/11/17 06/11/17 02:31 03:00 03:30 Temperature Pulse Rate 70 70 69 Respiratory 14 17 19 Rate Blood Pressure 189/72 174/64 185/62 (mmHg) O2 Sat by Pulse 98 98 95 Oximetry 06/11/17 06/11/17 06/11/17 04:00 04:30 05:00 Temperature 99.6 F Pulse Rate 72 70 70 Respiratory 14 16 17 Rate Blood Pressure 175/73 177/77 161/56 (mmHg) O2 Sat by Pulse 94 96 96 Oximetry 06/11/17 06/11/17 06/11/17 05:30 05:56 06:00 Temperature Pulse Rate 70 70 Respiratory 16 15 18 Rate Blood Pressure 171/76 201/75 (mmHg) O2 Sat by Pulse 96 97 Oximetry 06/11/17 06/11/17 06/11/17 06:30 07:00 07:30 Temperature Pulse Rate 70 70 70 Respiratory 21 14 17 Rate Blood Pressure 180/70 194/84 185/72 (mmHg) O2 Sat by Pulse 96 97 96 Oximetry 06/11/17 06/11/17 06/11/17 07:42 07:59 08:00 Temperature 98.2 F Pulse Rate 70 Respiratory 16 20 Rate Blood Pressure 193/78 (mmHg) O2 Sat by Pulse 95 Oximetry 06/11/17 06/11/17 08:30 09:00 Temperature Pulse Rate 70 70 Respiratory 19 16 Rate Blood Pressure 199/90 175/116 (mmHg) O2 Sat by Pulse 98 98 Oximetry - Intake and Output Intake and Output: Intake & Output 06/08/17 06/09/17 06/10/17 06/11/17 11:59 11:59 11:59 11:59 Intake Total 1439 2393 1218 Balance 1439 2393 1218 Weight 144 lb 13.499 oz 143 lb 15.39 oz 142 lb 10.225 oz Intake: IV Fluids 1334 1859 762 ABX - CEFTRIAXONE 130 ABX - VANCOMYCIN 330 NS (0.9%) 1334 1399 141 NS with meds 621 IVPB 105 534 376 ABX - CEFTRIAXONE 100 NS (0.9%) 105 534 52 NS with meds 224 Oral 0 0 80 Other: Estimated Void Large Medium Large # Voids 1 3 0 ADLs: Meal Record Start: 06/08/17 09: 37 Freq: ,, Status: Active Protocol: Document 06/08/17 12:30 [id number] (Rec: 06/08/17 12:30 [id number] [id number]-M05 ) Document 06/09/17 09:00 [id number] (Rec: 06/09/17 11:48 [id number] ICU-C11) Document 06/09/17 13:00 [id number] (Rec: 06/09/17 17:18 [id number] ICU-C11) Document 06/09/17 18:00 [id number] (Rec: 06/09/17 18:15 [id number] ICU-C06) Document 06/10/17 09:00 [id number] (Rec: 06/10/17 10:26 [id number] ICU-C18) Document 06/10/17 13:00 [id number] (Rec: 06/10/17 15:02 [id number] ICU-C18) Document 06/10/17 22:48 [id number] (Rec: 06/10/17 22:48 [id number] ICU-C19) Intake and Output Start: 06/08/17 09: 37 Freq: 06,14,22 Status: Active Protocol: Document 06/08/17 14:00 [id number] (Rec: 06/08/17 15:20 [id number] ICU-C07) Document 06/08/17 22:00 [id number] (Rec: 06/08/17 23:58 [id number] ICU-C07) Document 06/09/17 06:25 [id number] (Rec: 06/09/17 06:25 [id number] ICU-C15) Document 06/09/17 14:00 [id number] (Rec: 06/09/17 18:08 [id number] ICU-C06) Document 06/09/17 22:00 [id number] (Rec: 06/09/17 23:37 [id number] ICU-C07) Document 06/10/17 06:00 [id number] (Rec: 06/10/17 07:10 [id number] ICU-C07) Document 06/10/17 22:49 [id number] (Rec: 06/10/17 22:49 [id number] ICU-C19) Document 06/11/17 05:54 [id number] (Rec: 06/11/17 05:55 [id number] ISDEMO-M05 ) - Physical Exam General Physical Exam Comment: Bilateral Dupuytrens contractures. She is awake and alert. She has slow and slightly slurred speech. Her mind wanders a little , but she is able to answer appropriately to direct questions. She is oriented in person and somewhat in place, knows the month. General: No Cyanosis, No Anemia, No Jaundice, No Lymphadenopathy, No Clubbing Eye Exam: bilateral: PERRLA, Normal Fundi - no papilledema, EOMI, Vision Field Skin: Normal: Rash Head: No Normocephalic, Yes Other - no neck stiffness Lungs and Chest: Yes: Chest Expansion Full, Chest Expansion Symetrica, Percussion Note Resonant, Vessicular Breath Sounds. No: Crackles, Wheezes Heart Rate and Rhythm: Regular Additional Cardiovascular: Yes: Normal Heart Sounds. No: Heart Murmur, Pedal Edema Abdominal Exam: Yes: Soft, Abdominal Mass - mild prominence in the superpubic region, Bowel Sounds Present. No: Distention, Abdominal Tenderness, Guarding, Rebound Tenderness - Extremities Cranial Nerves II-XII Intact: Yes Limbs: Normal Power, Abnormal Coordination - slow, but finger nose on right accurate - Neuro Orientation: Person, Place Speech: Slurred Speech Results - Results Lab Results: Laboratory Results - last 24 hr 06/09/17 06/09/17 06/09/17 12:46 13:32 13:32 WBC RBC Hgb Hct MCV MCH MCHC RDW Plt Count MPV INR (Anticoag Therapy) Sodium Potassium Chloride Carbon Dioxide Anion Gap BUN Creatinine Est GFR ( Amer) Est GFR (Non-Af Amer) BUN/Creatinine Ratio Glucose Calcium Total Bilirubin AST ALT Alkaline Phosphatase C-Reactive Protein Total Protein Albumin Globulin Albumin/Globulin Ratio Fluid Cell Count Rvw By CSF HSV I (PCR) Negative CSF Herpes II DNA (PCR) Negative Lyme Disease Serology Positive 06/11/17 06/11/17 06/11/17 05:58 05:58 05:58 WBC 13.6 H RBC 4.50 Hgb 13.2 Hct 39 MCV 86 MCH 29 MCHC 34 RDW 16 H Plt Count 310 MPV 7 L INR (Anticoag Therapy) 1.17 H Sodium 140 Potassium 3.1 L Chloride 107 Carbon Dioxide 22 Anion Gap 11 BUN 21 Creatinine 0.87 Est GFR ( Amer) 81.2 Est GFR (Non-Af Amer) 63.1 BUN/Creatinine Ratio 24.1 H Glucose 103 H Calcium 9.3 Total Bilirubin 0.60 AST 18 ALT 13 Alkaline Phosphatase 121 H C-Reactive Protein 86.33 H Total Protein 6.9 Albumin 3.8 Globulin 3.1 Albumin/Globulin Ratio 1.2 Fluid Cell Count Rvw By CSF HSV I (PCR) CSF Herpes II DNA (PCR) Lyme Disease Serology Radiology Results: Patient Name: SONDRA SCHWARZ Medical Record#: [id number] Ordering Physician: Ab Garcia MD Acct.#: [id number] : 1940 Age: 77 Sex: F Location: EMERGENCY DEPARTMENT Exam Date: 06/08/17 0458 ADM Status: REG ER Order Information: CT BRAIN WO Accession Number: [id number] CPT: 06705 HISTORY: Confusion, altered mental status COMPARISONS: December 22, 2016 TECHNIQUE: Multiple contiguous axial CT scans were obtained of the head without intravenous contrast. FINDINGS: The study is limited by patient motion artifact. HEMORRHAGE/INFARCT: There is no hemorrhage or acute infarct. MASSES/SHIFT: There is no mass or shift. EXTRA-AXIAL SPACES: There are no extra-axial fluid collections. SULCI AND VENTRICLES: The sulci and ventricles are normal in size and position for the patient's stated age. CEREBRUM: There is hypoattenuation of the periventricular and subcortical white matter. BRAINSTEM: There are no focal parenchymal abnormalities. CEREBELLUM: There are no focal parenchymal abnormalities. VESSELS: The vessels are grossly normal. PARANASAL SINUSES: The paranasal sinuses are clear. ORBITS: The orbits are unremarkable. BONES AND SOFT TISSUE: No bone or soft tissue abnormalities are noted. OTHER: None IMPRESSION: LIMITED STUDY. WITHIN THE LIMITATIONS OF THE STUDY, THERE IS NO ACUTE INTRACRANIAL PATHOLOGY. <Electronically signed by Kashmir Landin MD in OV> 06/08/17717 Dictated By: Kashmir Landin MD Dictated Date/Time: 06/08/17717 Transcribed Date/Time: 06/08/1716 Copy to: CC:Ab Garcia MD; Bonnie Gutierrez MD Imaging - [facility] Imaging - [facility] Imaging - [facility] [address] [place] [address] 1 of 2 Patient Name: SONDRA SCHWARZ Medical Record#: [id number] Ordering Physician: Bonnie Gutierrez MD Acct.#: [id number] : 1940 Age: 77 Sex: F Location: INTENSIVE CARE UNIT Exam Date: 06/10/17 1604 ADM Status: ADM IN Order Information: CHEST AP PORTABLE Accession Number: [id number] CPT: 71505 Indication: PICC placement verification. Comparison: June 08, 2017 Technique: Upright AP 1620 hours Report: Tip of LEFT upper chimney PICC at the level of the superior vena cava RIGHT atrial junction directed central. Mild prominence of the interstitial markings. Clear pleural spaces. Negative for pneumothorax. RIGHT atrial and RIGHT ventricular level pacemaker leads. Aortic valve replacement. Cardiomegaly. Unremarkable central pulmonary vasculature. IMPRESSION: Acceptable position of the LEFT upper extremity PICC. <Electronically signed by Uriah Diaz MD in OV> 06/10/17 173 Dictated By: Uriah Diaz MD Dictated Date/Time: 06/10/17 173 Transcribed Date/Time: 06/10/17 173 Copy to: CC:Bonnie Gutierrez MD; Tati Archer MD; Jason Vergara MD; Alina Turner MD; Sabrina Hickman MD Imaging - [facility] Imaging - [facility] [address] [place] [address] ph [phone]) ph [phone]) ph ([phone]) 1 of 1 Assessment - Problem List Assessment: Patient Problems Accelerated hypertension (Acute) CSF abnormal (Acute) Encephalopathy acute (Acute) Anticoagulated (Chronic) Atrial fibrillation (Chronic) Dyslipidemia (Chronic) Essential (primary) hypertension (Chronic) History of CVA (cerebrovascular accident) (Chronic) History of mitral valve replacement with bioprosthetic valve (Chronic) Hyperlipidemia (Chronic) Narcolepsy (Chronic) Pacemaker (Chronic) Seizure disorder (Chronic) Plan: Encephalopathy acute (Acute) She is more alert and responsive today. She is able to answer questions and follow simple commands. Her encephalopathy is improving. I have stopped her acyclovir as her HSV serology is negative. I will maintain her IV antibacterials. I note she has a positive Lyme serology - we are awaiting the Western blot. Stopping acyclovir will hopefully help her mental state. Accelerated hypertension (Acute) Essential (primary) hypertension (Chronic) Her BP has been persistently high. She is now eating/drinking and I think part of this is volume overload. I will stop her IVF. I will restore her outpatient furosemide and add spironolactone for antihypertensive effect as she is hypokalemic. I will also add amlodipine. I will stop IV hydralazine. CSF abnormal (Acute) She had a mildly positive protein and an increased proportion of neutrophils. I will maintain her IV antibacterials. I note her blood cultures are negative after 2 days Anticoagulated (Chronic) I will restart warfarin Atrial fibrillation (Chronic) regular pulse - no abnormalities on telemetry Dyslipidemia (Chronic) secondary diagnosis History of CVA (cerebrovascular accident) (Chronic) History of mitral valve replacement with bioprosthetic valve (Chronic) Narcolepsy (Chronic) secondary diagnosis Pacemaker (Chronic) Seizure disorder (Chronic) no evidence of seizure activity. We remain puzzled as to the cause of the encephalopathy - infectious, hypertensive (no papilledema), toxic, metabolic. At present infection remains a possibility with the intriguingly positive Lyme serology - which is likely going to be a false positive. I spoke at length to the patient and her family. I will transfer her out of the ICU to a general medical bed. I will stop telemetry. I will obtain PT/OT.
[2017-06-11] MEDS ORDERED: Spironolactone TAB* 25 MG PO ONE (10:46)
[2017-06-11] MEDS: Furosemide TAB* 20 MG PO SCH (12:12)
[2017-06-11] MEDS: Fosphenytoin(*) 100 MG/2 ML VIAL IVPB SCH (15:52)
[2017-06-11] MEDS ORDERED: Warfarin TAB(*) 5 MG PO ONE (17:00)
[2017-06-11] MEDS ORDERED: Alteplase (CATHFLO)* 2 MG VIAL IV ONE ×2 (21:00→23:00)
[2017-06-12] MEDS: cefTRIAXone(*) 2 GM in NS 0.9% 100 ML* 100 ML IVPB SCH ×3 (00:02→23:29)
[2017-06-12 06:39] LABS: ABS Basophils 0 10^3/ul (0-0.2); ABS Eosinophils 0.3 10^3/ul (0-0.6); ABS Lymphocytes 1.1 10^3/ul (1.0-4.8); ABS Monocytes 1.2 10^3/ul (0-0.8); ABS Neutrophils 5.8 10^3/ul (1.5-7.7); ABS Nucleated RBC 0 10^3/ul; Eosinophil % 3.3 % (0-6); Hematocrit 37 % (35-47); Hemoglobin 12.6 g/dl (12.0-16.0); Lymphocyte % 12.5 % (25-47); Mean Corpuscular HGB Conc 35 g/dl (31-36); Mean Corpuscular Hemoglobin 30 pg (27-31); Mean Corpuscular Volume 86 fL (80-97); Mean Platelet Volume 7 um3 (7.4-10.4); Nucleated Red Blood Cells % 0; Platelet Count 299 10^3/ul (150-450); Red Blood Count 4.28 10^6/ul (4.0-5.4); Red Cell Distribution Width 16 % (10.5-15); White Blood Count 8.4 10^3/ul (3.5-10.8)
[2017-06-12 06:50] LABS: EGFR Non-African American 54.4 (>60); INR 2.32 (0.77-1.02)
--- NOTE | 2017-06-12 09:56 | PN ---
Subjective - Subjective Reason for Note: Progress Note History: She remains disoriented - ?day, June,?, Hospital ? name. She can't give an account of why she is in the hospital. However, she is conversational and following commands. Her speech is more clear than yesterday. She denies any pain or distress. She denies fevers/rigors. Active Problems: Active Problems Accelerated hypertension (Acute) I10 CSF abnormal (Acute) R83.9 Encephalopathy acute (Acute) G93.40 Anticoagulated (Chronic) Z79.01 Atrial fibrillation (Chronic) I48.91 Dyslipidemia (Chronic) E78.5 Essential (primary) hypertension (Chronic) I10 History of CVA (cerebrovascular accident) (Chronic) Z86.73 History of mitral valve replacement with bioprosthetic valve (Chronic) Z95.4 Hyperlipidemia (Chronic) E78.5 Narcolepsy (Chronic) G47.419 Pacemaker (Chronic) Z95.0 Seizure disorder (Chronic) G40.909 Current Medications: Current Medications Acetaminophen (Tylenol Tab*) 650 mg PO Q4H PRN PRN Reason: FEVER/PAIN Amlodipine Besylate (Norvasc Tab*) 5 mg PO DAILY [facility] Enoxaparin Sodium (Lovenox(*)) 60 mg SUBCUT Q12H [facility] Last Admin: 06/11/17 20:07 Dose: 60 mg Furosemide (Lasix Tab*) 20 mg PO DAILY [facility] Last Admin: 06/11/17 12:12 Dose: 20 mg Heparin Sodium (Porcine) (Heparin Flush Picc/Ml/Cvc(*)) 1 - 3 ml FLUSH 0600, 1800 [facility] PRN Reason: Protocol Last Admin: 06/12/17 05:34 Dose: Not Given Ceftriaxone Sodium 2 gm/ (Sodium Chloride) 100 mls @ 200 mls/hr IVPB Q12H [facility] Last Admin: 06/12/17 00:02 Dose: 200 mls/hr Lamotrigine (Lamictal Tab(*)) 100 mg PO BID [facility] Last Admin: 06/11/17 20:07 Dose: 100 mg Lamotrigine (Lamictal Tab(*)) 25 mg PO BID [facility] Last Admin: 06/11/17 20:07 Dose: 25 mg Magnesium Oxide (Magox 400 Tab*) 400 mg PO DAILY [facility] Last Admin: 06/11/17 08:42 Dose: 400 mg Metoprolol Succinate ([facility] Xl [facility]*) [facility] [place] Admin: 06/11/17 08:42 Dose: 50 mg Pharmacy Profile Note (Coumadin Per Pharmacy*) 0 note FOLLOW UP .PER PHARMACY PROTOC [facility] PRN Reason: Protocol Warfarin Sodium (Coumadin Tab(*)) 2 mg PO ONCE@1700 ONE Stop: 06/12/17 17:01 Home Medications: Home Medications Medication Instructions Recorded Confirmed Type lamoTRIgine TAB(*) [LaMICtal 150 mg PO BID 10/05/12 06/08/17 History TAB(*)] Mometasone 220 MCG MDI * [Asmanex 1 puff INH BID 10/17/13 06/08/17 History (NF)] Furosemide TAB* [Lasix TAB*] 20 mg PO QAM 03/31/14 06/08/17 History Acetaminophen TAB* [Tylenol TAB*] 325 mg PO Q6H PRN 05/11/14 06/08/17 History Clobetasol 0.05% OINT* 1 applic TOPICAL BID 06/08/17 06/08/17 History Cyclobenzaprine TAB* [Flexeril 10 10 mg PO BEDTIME 06/08/17 06/08/17 History MG TAB*] Imipramine (NF) 50 mg PO QPM 06/08/17 06/08/17 History Magnesium Oxide TAB* [MagOx 400 400 mg PO DAILY 06/08/17 06/08/17 History TAB*] Metoprolol Succinate XL TAB* 50 mg PO QAM 06/08/17 06/08/17 History [Toprol XL TAB*] Simvastatin TAB(NF) [Zocor(NF)] 10 mg PO QPM 06/08/17 06/08/17 History Allergies: Allergies Allergy/AdvReac Type Severity Reaction Status Date / Time hydrocodone Allergy Intermediate See Comment Verified 06/08/17 11:43 carbamazepine Allergy Unknown Verified 06/08/17 11:43 Reaction Details Sulfa (Sulfonamide Allergy Unknown Verified 06/08/17 11:43 Antibiotics) Reaction Details Objective - Vital Signs Vital Signs: Vital Signs 06/11/17 06/11/17 06/11/17 10:00 10:30 11:00 Temperature Pulse Rate 70 70 69 Respiratory 16 17 21 Rate Blood Pressure 194/91 188/78 149/134 (mmHg) O2 Sat by Pulse 96 98 100 Oximetry 06/11/17 06/11/17 06/11/17 11:31 12:00 12:01 Temperature 98.4 F Pulse Rate 70 70 72 Respiratory 16 16 21 Rate Blood Pressure 200/83 225/96 (mmHg) O2 Sat by Pulse 99 99 100 Oximetry 06/11/17 06/11/17 06/11/17 12:31 13:00 13:15 Temperature Pulse Rate 70 70 Respiratory 16 16 16 Rate Blood Pressure 149/123 (mmHg) O2 Sat by Pulse 100 100 Oximetry 06/11/17 06/11/17 06/11/17 13:19 13:31 14:00 Temperature Pulse Rate 70 70 70 Respiratory 20 18 17 Rate Blood Pressure 201/79 193/75 201/79 (mmHg) O2 Sat by Pulse 100 99 99 Oximetry 06/11/17 06/11/17 06/11/17 14:52 15:00 15:56 Temperature 98.5 F Pulse Rate 70 70 69 Respiratory 17 17 16 Rate Blood Pressure 208/75 211/93 172/68 (mmHg) O2 Sat by Pulse 99 99 99 Oximetry 06/11/17 06/11/17 06/11/17 19:53 20:00 23:52 Temperature 97.4 F 98.0 F Pulse Rate 70 70 Respiratory 16 16 16 Rate Blood Pressure 168/67 189/56 (mmHg) O2 Sat by Pulse 100 99 Oximetry 06/12/17 06/12/17 06/12/17 03:51 07:29 08:08 Temperature 98.2 F 98.4 F Pulse Rate 70 70 Respiratory 18 18 16 Rate Blood Pressure 166/61 178/58 (mmHg) O2 Sat by Pulse 98 98 Oximetry - Intake and Output Intake and Output: Intake & Output 06/09/17 06/10/17 06/11/17 06/12/17 11:59 11:59 11:59 11:59 Intake Total 1439 2393 1468 1766 Output Total 0 Balance 1439 2393 1468 1766 Weight 144 lb 13.499 oz 143 lb 15.39 oz 142 lb 10.225 oz Intake: IV Fluids 1334 1859 762 492 ABX - CEFTRIAXONE 130 492 ABX - VANCOMYCIN 330 NS (0.9%) 1334 1399 141 NS with meds 621 IVPB 105 534 376 224 ABX - CEFTRIAXONE 100 224 NS (0.9%) 105 534 52 NS with meds 224 Oral 0 0 330 1050 Output: Urine 0 Other: Estimated Void Large Medium Large Large # Bowel Movements 1 Estimated Stool Amount Large # Voids 1 3 0 1 ADLs: Meal Record Start: 06/08/17 09: 37 Freq: 09,13,18 Status: Active Protocol: Document 06/08/17 12:30 [id number] (Rec: 06/08/17 12:30 [id number] ISDEMO-M05 ) Document 06/09/17 09:00 [id number] (Rec: 06/09/17 11:48 [id number] ICU-C11) Document 06/09/17 13:00 [id number] (Rec: 06/09/17 17:18 [id number] ICU-C11) Document 06/09/17 18:00 [id number] (Rec: 06/09/17 18:15 [id number] ICU-C06) Document 06/10/17 09:00 [id number] (Rec: 06/10/17 10:26 [id number] ICU-C18) Document 06/10/17 13:00 [id number] (Rec: 06/10/17 15:02 [id number] ICU-C18) Document 06/10/17 22:48 [id number] (Rec: 06/10/17 22:48 [id number] ICU-C19) Document 06/11/17 09:00 [id number] (Rec: 06/11/17 10:40 [id number] ISDEAK-M05 ) Document 06/11/17 13:00 [id number] (Rec: 06/11/17 13:19 [id number] ICU-C06) Document 06/11/17 18:00 [id number] (Rec: 06/11/17 22:37 [id number] MED-C05) Document 06/12/17 09:00 [id number] (Rec: 06/12/17 09:21 [id number] MED-C11) Intake and Output Start: 06/08/17 09: 37 Freq: 06,14,22 Status: Active Protocol: Document 06/08/17 14:00 [id number] (Rec: 06/08/17 15:20 [id number] ICU-C07) Document 06/08/17 22:00 [id number] (Rec: 06/08/17 23:58 [id number] ICU-C07) Document 06/09/17 06:25 [id number] (Rec: 06/09/17 06:25 [id number] ICU-C15) Document 06/09/17 14:00 [id number] (Rec: 06/09/17 18:08 [id number] ICU-C06) Document 06/09/17 22:00 [id number] (Rec: 06/09/17 23:37 [id number] ICU-C07) Document 06/10/17 06:00 [id number] (Rec: 06/10/17 07:10 [id number] ICU-C07) Document 06/10/17 22:49 [id number] (Rec: 06/10/17 22:49 [id number] ICU-C19) Document 06/11/17 05:54 [id number] (Rec: 06/11/17 05:55 [id number] ISDEMO-M05 ) Document 06/11/17 14:00 [id number] (Rec: 06/11/17 14:54 [id number] ICU-C06) Document 06/11/17 22:00 [id number] (Rec: 06/11/17 22:41 [id number] MED-C05) Document 06/12/17 06:00 [id number] (Rec: 06/12/17 06:54 [id number] MEDL-C02) - Physical Exam General: No Cyanosis, No Anemia, No Jaundice, No Lymphadenopathy, No Clubbing Lungs and Chest: Yes: Chest Expansion Full, Chest Expansion Symetrica, Percussion Note Resonant, Vessicular Breath Sounds. No: Crackles, Wheezes Heart Rate and Rhythm: Regular JVP: Not Elevated Additional Cardiovascular: Yes: Normal Heart Sounds. No: Heart Murmur, Pedal Edema Abdominal Exam: Yes: Distention, Bowel Sounds Present. No: Soft, Abdominal Mass - Extremities Cranial Nerves II-XII Intact: Yes Limbs: Normal Power, Normal Tone Results - Results Lab Results: Laboratory Results - last 24 hr 06/09/17 06/09/17 06/12/17 12:46 13:32 06:28 WBC RBC Hgb Hct MCV MCH MCHC RDW Plt Count MPV Neut % (Auto) Lymph % (Auto) Swisher % (Auto) Eos % (Auto) Baso % (Auto) Absolute Neuts (auto) Absolute Lymphs (auto) Absolute Monos (auto) Absolute Eos (auto) Absolute Basos (auto) Absolute Nucleated RBC Nucleated RBC % INR (Anticoag Therapy) 2.32 H Sodium Potassium Chloride Carbon Dioxide Anion Gap BUN Creatinine Est GFR ( Amer) Est GFR (Non-Af Amer) BUN/Creatinine Ratio Glucose Calcium C-Reactive Protein Lyme IgG (Western Blot) Negative Lyme IgG Bands Present No bands detected Lyme IgM (Western Blot) Negative Lyme IgM Bands Present No bands detected Lyme Disease Interpret See comment VZV DNA (PCR) Negative 06/12/17 06/12/17 06:28 06:28 WBC 8.4 RBC 4.28 Hgb 12.6 Hct 37 MCV 86 MCH 30 MCHC 35 RDW 16 H Plt Count 299 MPV 7 L Neut % (Auto) 68.9 Lymph % (Auto) 12.5 L Swisher % (Auto) 14.7 H Eos % (Auto) 3.3 Baso % (Auto) 0.6 Absolute Neuts (auto) 5.8 Absolute Lymphs (auto) 1.1 Absolute Monos (auto) 1.2 H Absolute Eos (auto) 0.3 Absolute Basos (auto) 0 Absolute Nucleated RBC 0 Nucleated RBC % 0 INR (Anticoag Therapy) Sodium 140 Potassium 2.8 L Chloride 106 Carbon Dioxide 24 Anion Gap 10 BUN 19 Creatinine 0.99 H Est GFR ( Amer) 69.9 Est GFR (Non-Af Amer) 54.4 BUN/Creatinine Ratio 19.2 Glucose 98 Calcium 9.0 C-Reactive Protein 106.84 H Lyme IgG (Western Blot) Lyme IgG Bands Present Lyme IgM (Western Blot) Lyme IgM Bands Present Lyme Disease Interpret VZV DNA (PCR) Assessment - Problem List Assessment: Patient Problems Accelerated hypertension (Acute) CSF abnormal (Acute) Encephalopathy acute (Acute) Anticoagulated (Chronic) Atrial fibrillation (Chronic) Dyslipidemia (Chronic) Essential (primary) hypertension (Chronic) History of CVA (cerebrovascular accident) (Chronic) History of mitral valve replacement with bioprosthetic valve (Chronic) Hyperlipidemia (Chronic) Narcolepsy (Chronic) Pacemaker (Chronic) Seizure disorder (Chronic) Plan: CSF abnormal (Acute)Encephalopathy acute (Acute) She is more lucid, but continues to have orientation problems. Her speech is no longer slurred. I do not know her baseline, but she likely improving. Her western blot for Lyme was negative - I am awaiting the studies on [employer] for acute Lyme - but this is unlikely. I note her CRP is a little higher today, but her Neut% is lower and she doesn't have a fever or signs of acute infection. I will continue to watch this, but maintain her current antibacterial coverage. Accelerated hypertension (Acute) This has improved with current treatment. I will add potassium in addition to the spironolactone. Anticoagulated (Chronic) continue current plan I reviewed the notes from PT and OT - she may require rehabilitation prior to discharge home.
[2017-06-12] MEDS: Metoprolol Succinate XL TAB* 50 MG PO SCH (10:00)
[2017-06-12] MEDS: amLODIPine TAB* 5 MG PO SCH (10:00)
[2017-06-12] MEDS: Enoxaparin(*) 60 MG/0.6 ML SYR SUBCUT SCH ×2 (10:01→21:18)
[2017-06-12] MEDS: lamoTRIgine TAB(*) 100 MG PO SCH ×2 (10:01→21:18)
[2017-06-12] MEDS: Furosemide TAB* 20 MG PO SCH (10:01)
[2017-06-12] MEDS: Magnesium Oxide TAB* 400 MG PO SCH (10:01)
[2017-06-12] MEDS: lamoTRIgine TAB(*) 25 MG PO SCH ×2 (10:01→21:18)
[2017-06-12] MEDS ORDERED: Warfarin TAB(*) 2 MG PO ONE (17:00)
[2017-06-13] MEDS: Temazepam CAP* 15 MG PO PRN ×2 (02:09→03:06)
[2017-06-13 06:20] LABS: INR 3.58 (0.77-1.02)
[2017-06-13] MEDS: Enoxaparin(*) 60 MG/0.6 ML SYR SUBCUT SCH (09:11)
[2017-06-13] MEDS: Furosemide TAB* 20 MG PO SCH (09:56)
[2017-06-13] MEDS: Metoprolol Succinate XL TAB* 50 MG PO SCH (09:57)
[2017-06-13] MEDS: lamoTRIgine TAB(*) 100 MG PO SCH ×2 (09:58→20:26)
[2017-06-13] MEDS: amLODIPine TAB* 5 MG PO SCH (09:59)
[2017-06-13] MEDS: Magnesium Oxide TAB* 400 MG PO SCH (09:59)
[2017-06-13] MEDS: lamoTRIgine TAB(*) 25 MG PO SCH ×2 (09:59→20:25)
--- NOTE | 2017-06-13 11:43 | PN ---
Subjective - Subjective Reason for Note: Progress Note History: She is more alert and oriented today - [facility], June 2017, Wednesday. She is with her and son. She had problems sleeping last night and required temazepam. She has walked with the help of PT. Her main symptom at present is hallucination. She has clear images - beautiful butterflies, flying fish, or some composite creature that walked up her arm and her arm when through it when she tried to brush it away. She denies headache, fever, sweats , chills. She has no pain or discomfort. Active Problems: Active Problems Accelerated hypertension (Acute) I10 CSF abnormal (Acute) R83.9 Encephalopathy acute (Acute) G93.40 Visual hallucinations (Acute) R44.1 Anticoagulated (Chronic) Z79.01 Atrial fibrillation (Chronic) I48.91 Dyslipidemia (Chronic) E78.5 Essential (primary) hypertension (Chronic) I10 History of CVA (cerebrovascular accident) (Chronic) Z86.73 History of mitral valve replacement with bioprosthetic valve (Chronic) Z95.4 Hyperlipidemia (Chronic) E78.5 Narcolepsy (Chronic) G47.419 Pacemaker (Chronic) Z95.0 Seizure disorder (Chronic) G40.909 Current Medications: Current Medications Acetaminophen (Tylenol Tab*) 650 mg PO Q4H PRN PRN Reason: FEVER/PAIN Amlodipine Besylate (Norvasc Tab*) 5 mg PO DAILY [facility] Last Admin: 06/13/17 09:59 Dose: 5 mg Enoxaparin Sodium (Lovenox(*)) 60 mg SUBCUT Q12H [facility] Last Admin: 06/13/17 09:11 Dose: Not Given Furosemide (Lasix Tab*) 20 mg PO DAILY [facility] Last Admin: 06/13/17 09:56 Dose: Not Given Heparin Sodium (Porcine) (Heparin Flush Picc/Ml/Cvc(*)) 1 - 3 ml FLUSH 0600, 1800 [facility] PRN Reason: Protocol Last Admin: 06/13/17 05:29 Dose: Not Given Ceftriaxone Sodium 2 gm/ (Sodium Chloride) 100 mls @ 200 mls/hr IVPB Q12H [facility] Last Admin: 06/12/17 23:29 Dose: 200 mls/hr Lamotrigine (Lamictal Tab(*)) 100 mg PO BID [facility] Last Admin: 06/13/17 09:58 Dose: 100 mg Lamotrigine (Lamictal Tab(*)) 25 mg PO BID [facility] Last Admin: 06/13/17 09:59 Dose: 25 mg Magnesium Oxide (Magox 400 Tab*) 400 mg PO DAILY [facility] Last Admin: 06/13/17 09:59 Dose: 400 mg Metoprolol Succinate (Toprol Xl Tab*) 50 mg PO QAM [facility] Last Admin: 06/13/17 09:57 Dose: 50 mg Pharmacy Profile Note (Coumadin Per Pharmacy*) 0 note FOLLOW UP .PER PHARMACY PROTOC [facility] PRN Reason: Protocol Temazepam (Restoril Cap*) 15 mg PO BEDTIME PRN PRN Reason: SLEEP Last Admin: 06/13/17 03:06 Dose: 15 mg Warfarin Sodium (Coumadin Tab(*)) 0.5 mg PO 1700 ONE Stop: 06/13/17 17:01 Home Medications: Home Medications Medication Instructions Recorded Confirmed Type lamoTRIgine TAB(*) [LaMICtal 150 mg PO BID 10/05/12 06/08/17 History TAB(*)] Mometasone 220 MCG MDI * [Asmanex 1 puff INH BID 10/17/13 06/08/17 History (NF)] Furosemide TAB* [Lasix TAB*] 20 mg PO QAM 03/31/14 06/08/17 History Acetaminophen TAB* [Tylenol TAB*] 325 mg PO Q6H PRN 05/11/14 06/08/17 History Clobetasol 0.05% OINT* 1 applic TOPICAL BID 06/08/17 06/08/17 History Cyclobenzaprine TAB* [Flexeril 10 10 mg PO BEDTIME 06/08/17 06/08/17 History MG TAB*] Imipramine (NF) 50 mg PO QPM 06/08/17 06/08/17 History Magnesium Oxide TAB* [MagOx 400 400 mg PO DAILY 06/08/17 06/08/17 History TAB*] Metoprolol Succinate XL TAB* 50 mg PO QAM 06/08/17 06/08/17 History [Toprol XL TAB*] Simvastatin TAB(NF) [Zocor(NF)] 10 mg PO QPM 06/08/17 06/08/17 History Allergies: Allergies Allergy/AdvReac Type Severity Reaction Status Date / Time hydrocodone Allergy Intermediate See Comment Verified 06/08/17 11:43 carbamazepine Allergy Unknown Verified 06/08/17 11:43 Reaction Details Sulfa (Sulfonamide Allergy Unknown Verified 06/08/17 11:43 Antibiotics) Reaction Details Objective - Vital Signs Vital Signs: Vital Signs 06/12/17 06/12/17 06/12/17 20:00 20:12 23:25 Temperature 97.9 F 98.3 F Pulse Rate 70 70 Respiratory 16 20 16 Rate Blood Pressure 180/52 180/79 (mmHg) O2 Sat by Pulse 100 100 Oximetry 06/13/17 06/13/17 06/13/17 05:25 08:00 08:06 Temperature 97.6 F Pulse Rate 70 70 Respiratory 16 18 19 Rate Blood Pressure 179/69 169/62 (mmHg) O2 Sat by Pulse 94 98 Oximetry - Intake and Output Intake and Output: Intake & Output 06/10/17 06/11/17 06/12/17 06/13/17 11:59 11:59 11:59 11:59 Intake Total 2393 1468 1766 2540 Output Total 0 Balance 2393 1468 1766 2540 Weight 143 lb 15.39 oz 142 lb 10.225 oz Intake: IV Fluids 1859 762 492 200 ABX - CEFTRIAXONE 130 492 200 ABX - VANCOMYCIN 330 NS (0.9%) 1399 141 NS with meds 621 IVPB 534 376 224 ABX - CEFTRIAXONE 100 224 NS (0.9%) 534 52 NS with meds 224 Oral 0 330 1050 2340 Output: Urine 0 Other: Estimated Void Medium Large Large Medium # Bowel Movements 1 1 Estimated Stool Amount Large Small # Voids 3 0 1 1 ADLs: Meal Record Start: 06/08/17 09: 37 Freq: 09,,18 Status: Active Protocol: Document 06/08/17 12:30 [id number] (Rec: 06/08/17 12:30 [id number] ISILMO-M05 ) Document 06/09/17 09:00 [id number] (Rec: 06/09/17 11:48 [id number] ICU-C11) Document 06/09/17 13:00 [id number] (Rec: 06/09/17 17:18 [id number] ICU-C11) Document 06/09/17 18:00 [id number] (Rec: 06/09/17 18:15 [id number] ICU-C06) Document 06/10/17 09:00 [id number] (Rec: 06/10/17 10:26 [id number] ICU-C18) Document 06/10/17 13:00 [id number] (Rec: 06/10/17 15:02 [id number] ICU-C18) Document 06/10/17 22:48 [id number] (Rec: 06/10/17 22:48 [id number] ICU-C19) Document 06/11/17 09:00 [id number] (Rec: 06/11/17 10:40 [id number] ISDEMO-M05 ) Document 06/11/17 13:00 [id number] (Rec: 06/11/17 13:19 [id number] ICU-C06) Document 06/11/17 18:00 [id number] (Rec: 06/11/17 22:37 [id number] MED-C05) Document 06/12/17 09:00 [id number] (Rec: 06/12/17 09:21 RBM9112 MED-C11) Document 06/12/17 13:00 [id number] (Rec: 06/12/17 13:08 [id number] MED-C11) Document 06/12/17 18:00 [id number] (Rec: 06/12/17 21:30 [id number] MED-C09) Document 06/13/17 09:00 [id number] (Rec: 06/13/17 09:52 [id number] MED-C11) Intake and Output Start: 06/08/17 09: 37 Freq: 06,14,22 Status: Active Protocol: Document 06/08/17 14:00 [id number] (Rec: 06/08/17 15:20 [id number] ICU-C07) Document 06/08/17 22:00 [id number] (Rec: 06/08/17 23:58 [id number] ICU-C07) Document 06/09/17 06:25 [id number] (Rec: 06/09/17 06:25 [id number] ICU-C15) Document 06/09/17 14:00 FSW0823 (Rec: 06/09/17 18:08 [id number] ICU-C06) Document 06/09/17 22:00 [id number] (Rec: 06/09/17 23:37 [id number] ICU-C07) Document 06/10/17 06:00 [id number] (Rec: 06/10/17 07:10 [id number] ICU-C07) Document 06/10/17 22:49 [id number] (Rec: 06/10/17 22:49 [id number] ICU-C19) Document 06/11/17 05:54 [id number] (Rec: 06/11/17 05:55 [id number] ISDEMO-M05 ) Document 06/11/17 14:00 [id number] (Rec: 06/11/17 14:54 [id number] ICU-C06) Document 06/11/17 22:00 [id number] (Rec: 06/11/17 22:41 [id number] MED-C05) Document 06/12/17 06:00 [id number] (Rec: 06/12/17 06:54 BPQ9598 MEDL-C02) Document 06/12/17 14:00 [id number] (Rec: 06/12/17 14:39 [id number] MED-C11) Document 06/12/17 22:00 [id number] (Rec: 06/12/17 22:35 [id number] MED-C09) Document 06/13/17 06:00 [id number] (Rec: 06/13/17 06:02 [id number] MED-C26) - Physical Exam General: No Cyanosis, No Anemia, No Jaundice, No Clubbing Lungs and Chest: Yes: Chest Expansion Full, Chest Expansion Symetrica, Percussion Note Resonant, Vessicular Breath Sounds. No: Crackles, Wheezes Heart Rate and Rhythm: Irregular Additional Cardiovascular: Yes: Normal Heart Sounds. No: Heart Murmur, Pedal Edema Abdominal Exam: Yes: Soft, Bowel Sounds Present. No: Distention, Abdominal Mass , Abdominal Tenderness - Extremities Cranial Nerves II-XII Intact: Yes Limbs: Normal Power, Normal Tone, Normal Coordination - Neuro Orientation: A/O x3 Speech: Normal Results - Results Lab Results: Laboratory Results - last 24 hr 06/13/17 05:23 INR (Anticoag Therapy) 3.58 H Assessment - Problem List Assessment: Patient Problems Accelerated hypertension (Acute) CSF abnormal (Acute) Encephalopathy acute (Acute) Visual hallucinations (Acute) Anticoagulated (Chronic) Atrial fibrillation (Chronic) Dyslipidemia (Chronic) Essential (primary) hypertension (Chronic) History of CVA (cerebrovascular accident) (Chronic) History of mitral valve replacement with bioprosthetic valve (Chronic) Hyperlipidemia (Chronic) Narcolepsy (Chronic) Pacemaker (Chronic) Seizure disorder (Chronic) Plan: Accelerated hypertension (Acute) Her SBP remains high, but she has a wide pulse pressure. CSF abnormal (Acute) No further results from these investigations - culture negative Encephalopathy acute (Acute) This is generally much improved - she is fully oriented and can hold a conversation. However, she is aware she has a short term memory deficit that is new - loses what she wants to say. There are no reports of ceftriaxone causing hallucinations - however she remains on a high dose. I have maintained this as her CRP was high yesterday - I will recheck tomorrow. Visual hallucinations (Acute) These are vivid, full color animations. They are not threatening. She is aware they are not real. She is not having auditory hallucinations. She did not have these previously. Anticoagulated (Chronic) I will stop her lovenox as her INR is high Atrial fibrillation (Chronic) ongoing I spoke to the patient and her family. The cause of her visual hallucinations remains obscure - as is the cause of her presenting illness. I suspect as her encephalopathy improves, her hallucinations will diminish. I won't give her any medication for this as I think it would worsen her general status.
[2017-06-13] MEDS: cefTRIAXone(*) 2 GM in NS 0.9% 100 ML* 100 ML IVPB SCH (12:06)
[2017-06-13] MEDS ORDERED: Warfarin TAB(*) 1 MG PO ONE (17:00)
[2017-06-13] MEDS: Potassium Chlor TAB* 20 MEQ TAB.ER PO SCH (20:26)
[2017-06-13] MEDS ORDERED: hydrALAZINE IV* 20 MG/ML VIAL IV SLOW PU PRN (23:50)
[2017-06-14] MEDS: cefTRIAXone(*) 2 GM in NS 0.9% 100 ML* 100 ML IVPB SCH ×2 (00:44→11:50)
[2017-06-14 05:44] LABS: ABS Basophils 0.1 10^3/ul (0-0.2); ABS Eosinophils 0.3 10^3/ul (0-0.6); ABS Lymphocytes 1.3 10^3/ul (1.0-4.8); ABS Monocytes 1.2 10^3/ul (0-0.8); ABS Neutrophils 6.2 10^3/ul (1.5-7.7); ABS Nucleated RBC 0 10^3/ul; Eosinophil % 3.6 % (0-6); Hematocrit 36 % (35-47); Hemoglobin 12.4 g/dl (12.0-16.0); Mean Corpuscular HGB Conc 34 g/dl (31-36); Mean Corpuscular Hemoglobin 30 pg (27-31); Mean Corpuscular Volume 87 fL (80-97); Mean Platelet Volume 7 um3 (7.4-10.4); Nucleated Red Blood Cells % 0.1; Platelet Count 303 10^3/ul (150-450); Red Blood Count 4.18 10^6/ul (4.0-5.4); Red Cell Distribution Width 15 % (10.5-15); White Blood Count 9.1 10^3/ul (3.5-10.8)
[2017-06-14 05:57] LABS: INR 2.12 (0.77-1.02)
[2017-06-14 06:00] LABS: EGFR Non-African American 49.7 (>60)
--- NOTE | 2017-06-14 08:49 | PN ---
Subjective - Subjective Reason for Note: Progress Note History: She continues to have vivid visual hallucinations - including black whirling lines. She is not distressed by them and is not having any auditory hallucinations. She is oriented and in no other distress. She has no fevers or sweats. No cough or sputum. She is not experiencing any pain. Active Problems: Active Problems Accelerated hypertension (Acute) I10 CSF abnormal (Acute) R83.9 Encephalopathy acute (Acute) G93.40 Visual hallucinations (Acute) R44.1 Anticoagulated (Chronic) Z79.01 Atrial fibrillation (Chronic) I48.91 Dyslipidemia (Chronic) E78.5 Essential (primary) hypertension (Chronic) I10 History of CVA (cerebrovascular accident) (Chronic) Z86.73 History of mitral valve replacement with bioprosthetic valve (Chronic) Z95.4 Hyperlipidemia (Chronic) E78.5 Narcolepsy (Chronic) G47.419 Pacemaker (Chronic) Z95.0 Seizure disorder (Chronic) G40.909 Current Medications: Current Medications Acetaminophen (Tylenol Tab*) 650 mg PO Q4H PRN PRN Reason: FEVER/PAIN Amlodipine Besylate (Norvasc Tab*) 5 mg PO DAILY [facility] Last Admin: 06/13/17 09:59 Dose: 5 mg Furosemide (Lasix Tab*) 20 mg PO DAILY [facility] Last Admin: 06/13/17 09:56 Dose: Not Given Hydralazine HCl (Apresoline Iv*) 5 mg IV SLOW PU Q6H PRN PRN Reason: SBP > 180 Last Admin: 06/14/17 00:44 Dose: 5 mg Ceftriaxone Sodium 2 gm/ (Sodium Chloride) 100 mls @ 200 mls/hr IVPB Q12H [facility] Last Admin: 06/14/17 00:44 Dose: 200 mls/hr Lamotrigine (Lamictal Tab(*)) 100 mg PO BID [facility] Last Admin: 06/13/17 20:26 Dose: 100 mg Lamotrigine (Lamictal Tab(*)) 50 mg PO BID [facility] Last Admin: 06/13/17 20:25 Dose: 50 mg Magnesium Oxide (Magox 400 Tab*) 400 mg PO DAILY [facility] Last Admin: 06/13/17 09:59 Dose: 400 mg Metoprolol Succinate (Toprol Xl Tab*) 50 mg PO QAM [facility] Last Admin: 06/13/17 09:57 Dose: 50 mg Pharmacy Profile Note (Coumadin Per Pharmacy*) 0 note FOLLOW UP .PER PHARMACY PROTOC PATRICIO PRN Reason: Protocol Potassium Chloride (Klor Con Er Tab*) 20 meq PO BID [facility] Last Admin: 06/13/17 20:26 Dose: 20 meq Temazepam (Restoril Cap*) 15 mg PO BEDTIME PRN PRN Reason: SLEEP Last Admin: 06/13/17 03:06 Dose: 15 mg Home Medications: Home Medications Medication Instructions Recorded Confirmed Type lamoTRIgine TAB(*) [LaMICtal 150 mg PO BID 10/05/12 06/08/17 History TAB(*)] Mometasone 220 MCG MDI * [Asmanex 1 puff INH BID 10/17/13 06/08/17 History (NF)] Furosemide TAB* [Lasix TAB*] 20 mg PO QAM 03/31/14 06/08/17 History Acetaminophen TAB* [Tylenol TAB*] 325 mg PO Q6H PRN 05/11/14 06/08/17 History Clobetasol 0.05% OINT* 1 applic TOPICAL BID 06/08/17 06/08/17 History Cyclobenzaprine TAB* [Flexeril 10 10 mg PO BEDTIME 06/08/17 06/08/17 History MG TAB*] Imipramine (NF) 50 mg PO QPM 06/08/17 06/08/17 History Magnesium Oxide TAB* [MagOx 400 400 mg PO DAILY 06/08/17 06/08/17 History TAB*] Metoprolol Succinate XL TAB* 50 mg PO QAM 06/08/17 06/08/17 History [Toprol XL TAB*] Simvastatin TAB(NF) [Zocor(NF)] 10 mg PO QPM 06/08/17 06/08/17 History Allergies: Allergies Allergy/AdvReac Type Severity Reaction Status Date / Time hydrocodone Allergy Intermediate See Comment Verified 06/08/17 11:43 carbamazepine Allergy Unknown Verified 06/08/17 11:43 Reaction Details Sulfa (Sulfonamide Allergy Unknown Verified 06/08/17 11:43 Antibiotics) Reaction Details Objective - Vital Signs Vital Signs: Vital Signs 06/13/17 06/13/17 06/13/17 11:18 15:29 19:30 Temperature 97.6 F 99.2 F 98.1 F Pulse Rate 96 72 69 Respiratory 15 18 16 Rate Blood Pressure 161/83 166/65 188/65 (mmHg) O2 Sat by Pulse 100 99 99 Oximetry 06/13/17 06/13/17 06/13/17 20:00 22:24 23:03 Temperature 98.4 F Pulse Rate 70 Respiratory 16 16 Rate Blood Pressure 176/72 183/63 (mmHg) O2 Sat by Pulse 96 Oximetry 06/13/17 06/14/17 06/14/17 23:40 03:28 08:11 Temperature 98.7 F 98.1 F Pulse Rate 70 71 Respiratory 16 18 Rate Blood Pressure 188/76 173/60 150/61 (mmHg) O2 Sat by Pulse 95 98 Oximetry - Intake and Output Intake and Output: Intake & Output 06/11/17 06/12/17 06/13/17 06/14/17 11:59 11:59 11:59 11:59 Intake Total 1468 1766 2540 2550 Output Total 0 Balance 1468 1766 2540 2550 Weight 142 lb 10.225 oz Intake: IV Fluids 762 492 200 220 ABX - CEFTRIAXONE 492 200 200 NS (0.9%) 141 NS with meds 621 20 IVPB 376 224 ABX - CEFTRIAXONE 100 224 NS (0.9%) 52 NS with meds 224 Oral 330 1050 2340 2330 Output: Urine 0 Other: Estimated Void Large Large Medium Medium Date of Last Bowel 1 Movement # Bowel Movements 1 1 1 Estimated Stool Amount Large Small Small # Voids 0 1 1 1 ADLs: Meal Record Start: 06/08/17 09: 37 Freq: 09,13,18 Status: Active Protocol: Document 06/08/17 12:30 [id number] (Rec: 06/08/17 12:30 [id number] [facility]-M05 ) Document 06/09/17 09:00 [id number] (Rec: 06/09/17 11:48 [id number] ICU-C11) Document 06/09/17 13:00 [id number] (Rec: 06/09/17 17:18 [id number] ICU-C11) Document 06/09/17 18:00 [id number] (Rec: 06/09/17 18:15 [id number] ICU-C06) Document 06/10/17 09:00 [id number] (Rec: 06/10/17 10:26 [id number] ICU-C18) Document 06/10/17 13:00 [id number] (Rec: 06/10/17 15:02 [id number] ICU-C18) Document 06/10/17 22:48 [id number] (Rec: 06/10/17 22:48 [id number] ICU-C19) Document 06/11/17 09:00 [id number] (Rec: 06/11/17 10:40 [id number] ISDEMO-M05 ) Document 06/11/17 13:00 [id number] (Rec: 06/11/17 13:19 [id number] ICU-C06) Document 06/11/17 18:00 [id number] (Rec: 06/11/17 22:37 [id number] MED-C05) Document 06/12/17 09:00 [id number] (Rec: 06/12/17 09:21 [id number] MED-C11) Document 06/12/17 13:00 [id number] (Rec: 06/12/17 13:08 [id number] MED-C11) Document 06/12/17 18:00 [id number] (Rec: 06/12/17 21:30 [id number] MED-C09) Document 06/13/17 09:00 [id number] (Rec: 06/13/17 09:52 [id number] MED-C11) Document 06/13/17 13:00 [id number] (Rec: 06/13/17 13:38 [id number] MED-C11) Document 06/13/17 18:00 [id number] (Rec: 06/13/17 19:47 [id number] MED-C09) Intake and Output Start: 06/08/17 09: 37 Freq: 06,14,22 Status: Active Protocol: Document 06/08/17 14:00 [id number] (Rec: 06/08/17 15:20 [id number] ICU-C07) Document 06/08/17 22:00 [id number] (Rec: 06/08/17 23:58 [id number] ICU-C07) Document 06/09/17 06:25 [id number] (Rec: 06/09/17 06:25 [id number] ICU-C15) Document 06/09/17 14:00 [id number] (Rec: 06/09/17 18:08 [id number] ICU-C06) Document 06/09/17 22:00 [id number] (Rec: 06/09/17 23:37 [id number] ICU-C07) Document 06/10/17 06:00 [id number] (Rec: 06/10/17 07:10 [id number] ICU-C07) Document 06/10/17 22:49 [id number] (Rec: 06/10/17 22:49 [id number] ICU-C19) Document 06/11/17 05:54 KFS1661 (Rec: 06/11/17 05:55 [id number] ISDEMO-M05 ) Document 06/11/17 14:00 [id number] (Rec: 06/11/17 14:54 KMR5617 ICU-C06) Document 06/11/17 22:00 [id number] (Rec: 06/11/17 22:41 [id number] MED-C05) Document 06/12/17 06:00 [id number] (Rec: 06/12/17 06:54 [id number] MEDL-C02) Document 06/12/17 14:00 [id number] (Rec: 06/12/17 14:39 [id number] MED-C11) Document 06/12/17 22:00 [id number] (Rec: 06/12/17 22:35 [id number] MED-C09) Document 06/13/17 06:00 [id number] (Rec: 06/13/17 06:02 [id number] MED-C26) Document 06/13/17 13:55 JBW1656 (Rec: 06/13/17 13:55 IIQ2602 MED-C11) Document 06/13/17 22:00 [id number] (Rec: 06/13/17 22:09 [id number] MED-C09) Document 06/14/17 01:54 [id number] (Rec: 06/14/17 01:54 [id number] MED-C05) - Physical Exam General Physical Exam Comment: she is in no distress - sitting and eating a large breakfast. Conversational and appropriate. General: No Cyanosis, No Anemia, No Jaundice, No Clubbing Lungs and Chest: Yes: Chest Expansion Full, Chest Expansion Symetrica, Percussion Note Resonant, Vessicular Breath Sounds. No: Crackles, Wheezes Heart Rate and Rhythm: Regular Additional Cardiovascular: Yes: Normal Heart Sounds. No: Heart Murmur, Pedal Edema Abdominal Exam: Yes: Soft. No: Distention, Abdominal Tenderness - Extremities Cranial Nerves II-XII Intact: Yes Limbs: Normal Power, Normal Tone, Normal Coordination - Neuro Orientation: A/O x3 Psychiatric: Normal Speech: Normal Results - Results Lab Results: Laboratory Results - last 24 hr 06/14/17 06/14/17 06/14/17 05:30 05:30 05:30 WBC 9.1 RBC 4.18 Hgb 12.4 Hct 36 MCV 87 MCH 30 MCHC 34 RDW 15 Plt Count 303 MPV 7 L Neut % (Auto) 68.4 Lymph % (Auto) 14.0 L [place] % (Auto) 13.4 H Eos % (Auto) 3.6 Baso % (Auto) 0.6 Absolute Neuts (auto) 6.2 Absolute Lymphs (auto) 1.3 Absolute Monos (auto) 1.2 H Absolute Eos (auto) 0.3 Absolute Basos (auto) 0.1 Absolute Nucleated RBC 0 Nucleated RBC % 0.1 INR (Anticoag Therapy) 2.12 H Sodium 140 Potassium 3.2 L Chloride 107 Carbon Dioxide 26 Anion Gap 7 BUN 18 Creatinine 1.07 H Est GFR ( Amer) 63.9 Est GFR (Non-Af Amer) 49.7 BUN/Creatinine Ratio 16.8 Glucose 109 H Calcium 8.9 C-Reactive Protein 44.68 H Assessment - Problem List Assessment: Patient Problems Accelerated hypertension (Acute) CSF abnormal (Acute) Encephalopathy acute (Acute) Visual hallucinations (Acute) Anticoagulated (Chronic) Atrial fibrillation (Chronic) Dyslipidemia (Chronic) Essential (primary) hypertension (Chronic) History of CVA (cerebrovascular accident) (Chronic) History of mitral valve replacement with bioprosthetic valve (Chronic) Hyperlipidemia (Chronic) Narcolepsy (Chronic) Pacemaker (Chronic) Seizure disorder (Chronic) Plan: CSF abnormal (Acute) Encephalopathy acute (Acute)Visual hallucinations (Acute) She continues to improve. Her CRP is coming down and her %neuts are normal. However, the hallucinations remain vivid. I think she requires another 24 hours of ceftriaxone at high dose to ensure that any [employer] infection is fully treated. She agrees to this. She needs to learn how to use a walker Accelerated hypertension (Acute) there is a slow, but discernable, downward trend in her BP. I will increase her amlodipine to 10 mg daily and add a small dose of ramipril Anticoagulated (Chronic) per pharmacy Atrial fibrillation (Chronic) rate controlled I discussed the above with the patient and called her Fran -couldn't get through. Bonnie Gutierrez returns.
[2017-06-14] MEDS: Furosemide TAB* 20 MG PO SCH (10:39)
[2017-06-14] MEDS: Magnesium Oxide TAB* 400 MG PO SCH (10:40)
[2017-06-14] MEDS: Metoprolol Succinate XL TAB* 50 MG PO SCH (10:40)
[2017-06-14] MEDS: Potassium Chlor TAB* 20 MEQ TAB.ER PO SCH ×2 (10:40→21:06)
[2017-06-14] MEDS: amLODIPine TAB* 5 MG PO SCH (10:40)
[2017-06-14] MEDS: lamoTRIgine TAB(*) 100 MG PO SCH ×2 (10:41→21:05)
[2017-06-14] MEDS: lamoTRIgine TAB(*) 25 MG PO SCH ×2 (10:41→21:05)
--- NOTE | 2017-06-14 11:07 | PN ---
Progress Note - Progress Note Date of Service: 06/14/17 SOAP: Subjective: CC: encephalopathy HPI: 77 year old woman with encephalitis; much improved over the weekend, still visual hallucinations. No headache or fever. Appetite is good, no diarrhea. Objective: Vital Signs Temp 36.7 C 06/14/17 08:11 Pulse 71 06/14/17 08:11 Resp 18 06/14/17 08:11 BP 150/61 06/14/17 08:11 Pulse Ox 98 06/14/17 08:11 Intake & Output 06/13/17 06/14/17 06/14/17 18:59 06:59 18:59 Intake Total 2510 520 Balance 2510 520 Intake: IV Fluids 100 120 ABX - CEFTRIAXONE 100 100 NS with meds 20 Oral 2410 400 Other: Estimated Void Medium Date of Last Bowel 1 Movement # Bowel Movements 1 Estimated Stool Amount Small # Voids 1 Gen:awake, no distress Neuro: Awake, alert Ox3 HEENT:PERRL, MMM Heart:RRR no murmur Lungs:CTA BL Abd:+BS NTND soft Skin: no rash Assessment: 1.encephalopathy, present on admission, improving, not resolved 2. encephalitis, viral; Lyme WB negative. 3. s/p pacer; MVR Plan: 1. bacterial studies including Lyme negative; will DC ceftriaxone 3/6 25 minutes floor time >50% face to face discussing time course of recovery after encephalitis
[2017-06-14] MEDS: Acetaminophen TAB* 325 MG PO PRN (15:03)
[2017-06-14] MEDS ORDERED: Warfarin TAB(*) 2 MG PO ONE (17:00)
[2017-06-14] MEDS: Ramipril CAP* 5 MG PO SCH (21:05)
[2017-06-15 05:40] LABS: ABS Basophils 0.1 10^3/ul (0-0.2); ABS Eosinophils 0.3 10^3/ul (0-0.6); ABS Lymphocytes 1.4 10^3/ul (1.0-4.8); ABS Monocytes 1.1 10^3/ul (0-0.8); ABS Neutrophils 4.8 10^3/ul (1.5-7.7); ABS Nucleated RBC 0 10^3/ul; Eosinophil % 4.1 % (0-6); Hematocrit 37 % (35-47); Hemoglobin 12.6 g/dl (12.0-16.0); Lymphocyte % 18.6 % (25-47); Mean Corpuscular HGB Conc 34 g/dl (31-36); Mean Corpuscular Hemoglobin 30 pg (27-31); Mean Corpuscular Volume 87 fL (80-97); Mean Platelet Volume 7 um3 (7.4-10.4); Nucleated Red Blood Cells % 0.1; Platelet Count 302 10^3/ul (150-450); Red Blood Count 4.27 10^6/ul (4.0-5.4); Red Cell Distribution Width 16 % (10.5-15); White Blood Count 7.7 10^3/ul (3.5-10.8)
[2017-06-15 05:48] LABS: INR 1.78 (0.77-1.02)
[2017-06-15 05:53] LABS: EGFR Non-African American 49.2 (>60)
[2017-06-15] MEDS: amLODIPine TAB* 5 MG PO SCH (07:51)
[2017-06-15] MEDS: Furosemide TAB* 20 MG PO SCH (07:52)
[2017-06-15] MEDS: lamoTRIgine TAB(*) 100 MG PO SCH ×2 (07:52→21:27)
[2017-06-15] MEDS: lamoTRIgine TAB(*) 25 MG PO SCH ×2 (07:52→21:27)
[2017-06-15] MEDS: Potassium Chlor TAB* 20 MEQ TAB.ER PO SCH ×2 (07:53→21:27)
[2017-06-15] MEDS: Magnesium Oxide TAB* 400 MG PO SCH (07:53)
[2017-06-15] MEDS: Metoprolol Succinate XL TAB* 50 MG PO SCH (07:54)
[2017-06-15] MEDS ORDERED: Warfarin TAB(*) 3 MG PO ONE (17:00)
[2017-06-15] MEDS: Acetaminophen TAB* 325 MG PO PRN (19:24)
[2017-06-15] MEDS: Ramipril CAP* 5 MG PO SCH (21:27)
[2017-06-16 06:56] LABS: Hematocrit 37 % (35-47); Hemoglobin 12.7 g/dl (12.0-16.0); Mean Corpuscular HGB Conc 34 g/dl (31-36); Mean Corpuscular Hemoglobin 30 pg (27-31); Mean Corpuscular Volume 88 fL (80-97); Mean Platelet Volume 7 um3 (7.4-10.4); Platelet Count 335 10^3/ul (150-450); Red Blood Count 4.27 10^6/ul (4.0-5.4); Red Cell Distribution Width 16 % (10.5-15); White Blood Count 8.5 10^3/ul (3.5-10.8)
[2017-06-16 07:01] LABS: INR 1.66 (0.77-1.02)
[2017-06-16 08:42] LABS: EGFR Non-African American 50.8 (>60)
[2017-06-16] MEDS: amLODIPine TAB* 5 MG PO SCH (08:44)
[2017-06-16] MEDS: Furosemide TAB* 20 MG PO SCH (08:44)
[2017-06-16] MEDS: Magnesium Oxide TAB* 400 MG PO SCH (08:44)
[2017-06-16] MEDS: lamoTRIgine TAB(*) 25 MG PO SCH (08:44)
[2017-06-16] MEDS: Metoprolol Succinate XL TAB* 50 MG PO SCH (08:44)
[2017-06-16] MEDS: Potassium Chlor TAB* 20 MEQ TAB.ER PO SCH (08:44)
[2017-06-16] MEDS: lamoTRIgine TAB(*) 100 MG PO SCH (08:45)
[2017-06-16 13:42] VITALS: BP 141/64
--- NOTE | 2017-06-16 21:03 | DS ---
DISCHARGE SUMMARY: DATE OF ADMISSION: 06/08/17. DATE OF DISCHARGE: 06/16/17. DISCHARGE DIAGNOSES: 1. Encephalitis. 2. Seizure disorder. 3. Hypertension. 4. Atrial fibrillation and flutter status post ablation. 5. Status post mitral valvuloplasty. 6. History of diastolic heart failure, compensated. 7. Hypokalemia. 8. History of depression. 9. History of asthma. 10. Status post pacemaker. 11. Hyperlipidemia. 12. History of cerebrovascular accident in 2013. 13. Gastroesophageal reflux disease. 14. History of migraine. 15. Allergies to amiodarone, sulfa, penicillin, hydrocodone, carbamazepine. 16. Chronic kidney disease. 17. Hypomagnesemia. HISTORY: Abena Jenkins is a 77-year-old woman admitted with acute mental status changes. Please see the dictated admission note for details of the present illness, past medical history, family history, social and personal history, review of systems and physical examination. LABORATORY DATA: Admission CBC: WBC 11, H and H 13.3/39, MCV 86, PLT 245,000, ESR 28, white count went up to 13.6 on 06/11/17 subsequently came down and was 8.5 on 06/16. H and H remained relatively stable. Platelet count remained stable. INR was 1.39. On admission was up to 2.32 on 06/12/17, 3.58 on , 2.12 on 06/14/17, 1.78 on 06/15/17 and 1.66 on 06/16/17. Chemistries on admission, sodium 136, potassium 4.6, chloride 99, CO2 28, BUN and creatinine 22 /1.19. Estimated GFR 44, glucose 141, calcium 10.4, alk phos 148, otherwise comprehensive metabolic panel was within normal limits. Potassium came down as low as 2.8 on 06/12/17, was up to 4.3 on 06/16/17, magnesium was 1.6 on 04/07/17 , 1.7 on 06/09/17, C-reactive protein started at 2.70, went up to a high of 106.84, was 18.49 at discharge. CK was 81, ammonia was 50, both normal. Procalcitonin was normal at 0.1. TSH was normal at 2.17. Urinalysis: Straw colored, specific gravity 1.012, pH 7, dipstick positive for blood 1+, micro was unremarkable, glucose was 1+. Spinal fluid color was clear, WBCs 34, RBCs 2. Differentials; 82 neutrophils, 3 lymphocytes, 15 monocytes, glucose 59, protein 58, CSF HSV was negative and herpes 2 was negative. Drug screen was negative. Lamotrigine level was 2.1. Lyme disease serology was positive, but Western blot was negative. Flow cytometry was negative. Blood cultures with no growth. CSF was no growth, MRSA nasal screen was negative. IMAGING: Chest x-ray showed no active cardiopulmonary disease. A pacemaker was present. Brain CT on 06/08/17 was a limited study due to motion artifact. No acute intracranial pathology. Chest x-ray 06/10/17 showed acceptable position of the PICC line. EKG on 06/08/17 showed paced rhythm with atrial flutter. EEG on 06/08/17 and 06/09/17 showed an abnormal EEG due to diffuse background slowing, frequent epileptiform discharges in the left frontotemporal region with more rare discharges in the right temporal region suggestive of a moderate nonspecific diffuse encephalopathy and superimposed increased epileptic potential. The second one showed frequent background, showed low voltage diffuse mixed frequency slowing and interictal epileptiform activity. The impression was abnormal long-term monitoring session with diffuse background slowing with loss of the usual organizations, but the EEG retained reactivity. In addition, there are left greater than right temporal epileptiform discharges. These findings are suggestive of moderate-to- severe nonspecific diffuse encephalopathy with superimposed increased epileptic potential of left greater than right temporal region. There were no seizures noted. HOSPITAL COURSE: Patient was admitted to the ICU. She was treated with IV antibiotics and acyclovir. She was monitored overnight on continuous EEG. She was placed on IV fosphenytoin. The antibiotics were vancomycin and ceftriaxone for possibility of [employer] infection. She received vitamin K. Anesthesiologist did a lumbar puncture after her INR came down on 06/09/17 . She had consultations from Dr. Archer from Neurology and Dr. Vergara from Infectious Disease. Dr. Archer felt that she had encephalopathy of unclear etiology. She added on urine studies for porphyria as well as an ammonia level. I do not see the urine studies for porphyria back yet. Dr. Archer would follow her along. Dr. Vergara saw her on 06/10/17. He felt that the patient had encephalopathy and mild CSF pleocytosis. Taken together, he felt she had encephalitis. He felt bacterial meningitis is ruled out. Since she was improving without ampicillin, he felt listeriosis is less likely. He felt this is likely a viral infection. At that point, he recommended stopping vancomycin continuing ceftriaxone, acyclovir, and following her mental status while awaiting for the PCR. In the ICU, she initially was obtunded. She was agitated at times. She was not responsive. This gradually improved. Her blood pressure was high and this was treated with IV beta- blockers and hydralazine and then reinstatement of her oral medications with the addition of ramipril and amlodipine. She received physical therapy and occupational therapy. After the lumbar puncture her anticoagulation was reinstated, initially with enoxaparin with the addition of warfarin. Her INR gradually came up. By 06/16/17, she was improved. She had no recollection of having been in the ICU. She had moved out on 06/11/17. She did know the month, date, and year, was off by the day by one day. She was walking in the corridors with a walker. She had been evaluated by [facility]. They felt that she did not require their services. She is being discharged on usual diet, activity as tolerated. DISCHARGE MEDICATIONS: 1. Lamotrigine 100 mg one and half twice a day. 2. Furosemide 20 mg daily. 3. Simvastatin 10 mg one each evening. 4. Metoprolol extended-release 50 mg one every evening. 5. Imipramine 25 mcg two at bedtime. 6. Magnesium oxide 400 mg once a day. 7. Albuterol two puffs every four hours as needed. 8. Asmanex 220, one puff twice day. 9. Coumadin/warfarin 2 mg daily six days a week and 1 mg one day a week on Tuesdays. 10. Ramipril 5 mg daily (new prescription). 11. Amlodipine 10 mg daily (new prescription). New prescriptions were being sent to the pharmacy. She is to have a blood work , BMP when she sees me in one week. [id number]/[facility] #: [id number] [facility]
== END 2017-06-16 13:35 | disposition home or self-care (01) | DRG 97 ==
LOC: ED 04:31 → ICU 09:24 → MED 06-11 10:48
PROVIDERS: ADMIT Internal Medicine; ATTEND Internal Medicine Geriatric Medicine
PROC: 4A10X4Z Monitoring of Central Nervous Electrical Activity, External Approach (ICD-10-PCS; 2017-06-08)
PROC: 009U3ZX Drainage of Spinal Canal, Percutaneous Approach, Diagnostic (ICD-10-PCS; 2017-06-09)
PROC: 02HV33Z Insertion of Infusion Device into Superior Vena Cava, Percutaneous Approach (ICD-10-PCS; principal; 2017-06-10)
DX: A86 Unspecified viral encephalitis (principal); G93.40 Encephalopathy, unspecified; E83.42 Hypomagnesemia; F44.4 Conversion disorder with motor symptom or deficit; I13.0 Hypertensive heart and chronic kidney disease with heart failure and stage 1 through stage 4 chronic kidney disease, or unspecified chronic kidney disease; I48.91 Unspecified atrial fibrillation; E86.0 Dehydration; I50.32 Chronic diastolic (congestive) heart failure; E78.00 Pure hypercholesterolemia, unspecified; E78.5 Hyperlipidemia, unspecified; E87.6 Hypokalemia; F32.9 Major depressive disorder, single episode, unspecified; F41.9 Anxiety disorder, unspecified; G40.909 Epilepsy, unspecified, not intractable, without status epilepticus; I25.10 Atherosclerotic heart disease of native coronary artery without angina pectoris; J45.909 Unspecified asthma, uncomplicated; M19.90 Unspecified osteoarthritis, unspecified site; G47.419 Narcolepsy without cataplexy; G43.909 Migraine, unspecified, not intractable, without status migrainosus; N18.9 Chronic kidney disease, unspecified; R41.0 Disorientation, unspecified; K21.9 Gastro-esophageal reflux disease without esophagitis; Z88.0 Allergy status to penicillin; Z79.01 Long term (current) use of anticoagulants; Z88.5 Allergy status to narcotic agent; Z88.2 Allergy status to sulfonamides; Z88.8 Allergy status to other drugs, medicaments and biological substances; Z95.0 Presence of cardiac pacemaker; Z86.73 Personal history of transient ischemic attack (TIA), and cerebral infarction without residual deficits; Z72.89 Other problems related to lifestyle; Z81.8 Family history of other mental and behavioral disorders; Z95.2 Presence of prosthetic heart valve
CPT/HCPCS: 36415; 70450; 71045; 80048; 80053; 80175; 80307; 80329; 81003; 81015; 82140; 82550; 82945; 83735; 84145; 84157; 84443; 85025; 85027; 85610; 85652; 85730; 86140; 86617; 86618; 87040; 87070; 87205; 87529; 87641; 87798; 88184; 88187; 88188; 89051; 93005; 95812; 95819; 95951; 99284; A9270-GY; C1751; G0480; G0515-GO; J0133; J0360; J0696; J1630; J1650; J2060; J2270; J2997; J3370; J3430; J3475; J3490

== ENCOUNTER 2021-10-13 07:43 | Inpatient (IN) ==
[2021-10-13] MEDS ORDERED: NS 0.9% 1000 ml BAG 1,000 ML IV ONE (08:01)
[2021-10-13] MEDS ORDERED: Ondansetron 4 mg VIAL 2 MG/ML 2 ml VIAL IV ONE (08:01)
[2021-10-13 09:04] LABS: ABS Lymphocytes 0.6 10^3/ul (1.0-4.8); ABS Monocytes 0.7 10^3/ul (0-0.8); ABS Neutrophils 7.7 10^3/ul (1.5-7.7); Hematocrit 44 % (35-47); Hemoglobin 14.9 g/dL (12.0-16.0); Lymphocyte % 6.4 %; Mean Corpuscular HGB Conc 34 g/dL (31-36); Mean Corpuscular Hemoglobin 30 pg (27-31); Mean Corpuscular Volume 88 fL (80-97); Platelet Count 329 10^3/uL (150-450); Red Blood Count 4.99 10^6 /uL (3.70-4.87); Red Cell Distribution Width 15 % (10-15)
[2021-10-13 09:14] LABS: INR 1.38 (0.86-1.15)
[2021-10-13 09:41] LABS: Albumin 4.1 g/dL (3.2-5.2); Albumin/Globulin Ratio 1.6 (1-3); Globulin 2.6 g/dL (2-4); Magnesium 1.7 mg/dL (1.9-2.7); Potassium 4.1 mmol/L (3.5-5.0); Total Bilirubin 0.5 mg/dL (0.2-1.0); Total Protein 6.7 g/dL (6.4-8.9); eGFR CKD-EPI 45.9 (>60)
[2021-10-13] MEDS ORDERED: Ondansetron 4 mg VIAL 2 MG/ML 2 ml VIAL IV PRN (11:26)
[2021-10-13] MEDS: IMIPRAMINE 25 MG PO SCH (20:22)
[2021-10-13] MEDS: CMC:Simvastatin 10 mg TAB (NF) PO SCH (20:22)
[2021-10-14 05:28] LABS: ABS Eosinophils 0.1 10^3/ul (0-0.6); ABS Monocytes 0.9 10^3/ul (0-0.8); ABS Neutrophils 7.6 10^3/ul (1.5-7.7); Eosinophil % 1.3 %; Hematocrit 43 % (35-47); Hemoglobin 14.4 g/dL (12.0-16.0); Lymphocyte % 10.1 %; Mean Corpuscular HGB Conc 34 g/dL (31-36); Mean Corpuscular Hemoglobin 30 pg (27-31); Mean Corpuscular Volume 89 fL (80-97); Mean Platelet Volume 7.4 fL (7.4-10.4); Platelet Count 335 10^3/uL (150-450); Red Blood Count 4.86 10^6 /uL (3.70-4.87); Red Cell Distribution Width 15 % (10-15); White Blood Count 9.6 10^3/uL (3.5-10.8)
[2021-10-14 05:30] LABS: INR 1.47 (0.86-1.15)
[2021-10-14 05:47] LABS: Calcium 9.1 mg/dL (8.6-10.3); eGFR CKD-EPI 42.1 (>60)
[2021-10-14] MEDS ORDERED: Warfarin per PHARMACY **NOTE FOLLOW UP SCH (08:00)
[2021-10-14 08:05] LABS: Magnesium 1.9 mg/dL (1.9-2.7)
[2021-10-14 20:47] LABS: Urine Appearance Clear; Urine Bilirubin Negative (Negative); Urine Blood Negative (Negative); Urine Color Yellow; Urine Glucose Negative (Negative); Urine Ketones Negative (Negative); Urine Nitrite Negative (Negative); Urine Protein 1+ (30 mg/dL) (Negative); Urine Specific Gravity 1.025 (1.005-1.030); Urine Urobilinogen 0.2 (Negative) (Negative)
[2021-10-14] MEDS: IMIPRAMINE 25 MG PO SCH (21:11)
[2021-10-14] MEDS: CMC:Simvastatin 10 mg TAB (NF) PO SCH (21:12)
[2021-10-14 21:15] LABS: Urine Bacteria Absent (Absent); Urine Red Blood Cell Trace(0-2/hpf) (Absent); Urine Squamous Epithelial Cell Present (Absent); Urine White Blood Cell 3+(>20/hpf) (Absent)
[2021-10-15 05:11] LABS: ABS Eosinophils 0.3 10^3/ul (0-0.6); ABS Lymphocytes 1.7 10^3/ul (1.0-4.8); ABS Monocytes 0.9 10^3/ul (0-0.8); ABS Neutrophils 4.1 10^3/ul (1.5-7.7); Eosinophil % 4.2 %; Hematocrit 39 % (35-47); Hemoglobin 12.9 g/dL (12.0-16.0); Lymphocyte % 24.2 %; Mean Corpuscular HGB Conc 33 g/dL (31-36); Mean Corpuscular Hemoglobin 29 pg (27-31); Mean Corpuscular Volume 88 fL (80-97); Mean Platelet Volume 7.3 fL (7.4-10.4); Platelet Count 289 10^3/uL (150-450); Red Blood Count 4.38 10^6 /uL (3.70-4.87); Red Cell Distribution Width 15 % (10-15)
[2021-10-15 05:31] LABS: INR 1.45 (0.86-1.15)
[2021-10-15 05:39] LABS: Calcium 8.9 mg/dL (8.6-10.3); Magnesium 1.9 mg/dL (1.9-2.7); eGFR CKD-EPI 35.1 (>60)
[2021-10-15] MEDS ORDERED: NS 0.9% 500 ml BAG 500 ML IV ONE (07:14)
[2021-10-15] MEDS: CMC:Simvastatin 10 mg TAB (NF) PO SCH (20:21)
[2021-10-15] MEDS: IMIPRAMINE 25 MG PO SCH (20:21)
[2021-10-16 06:08] LABS: Calcium 8.8 mg/dL (8.6-10.3); Magnesium 1.9 mg/dL (1.9-2.7); Potassium 4.2 mmol/L (3.5-5.0); eGFR CKD-EPI 44.6 (>60)
[2021-10-16 06:25] LABS: INR 1.45 (0.86-1.15)
[2021-10-16] MEDS ORDERED: Warfarin DAILY REMINDER **NOTE FOLLOW UP SCH (17:00)
[2021-10-16] MEDS: IMIPRAMINE 25 MG PO SCH (20:58)
[2021-10-16] MEDS: CMC:Simvastatin 10 mg TAB (NF) PO SCH (20:59)
[2021-10-17 06:25] LABS: INR 1.46 (0.86-1.15)
[2021-10-17] MEDS ORDERED: COVID-19 VACCINE, MRNA(MODERNA) BOOSTER/PF 50 MCG/0.25 ML IM ONE (11:00)
[2021-10-17 11:48] VITALS: BP 138/65
== END 2021-10-17 14:15 | DRG 149 ==
LOC: EDHOLD 07:43 → ED 07:43 → MED 13:48
PROVIDERS: ADMIT Internal Medicine; ATTEND Internal Medicine